=== PATIENT | female | born 1965 | race Caucasian/White ===

== ENCOUNTER 2018-12-10 16:13 | Inpatient (IN) | payer MEDICAID, MEDICARE ==
[2018-12-10] MEDS ORDERED: Albuterol Sulfate 2.5 mg/3 ml Neb ONE (16:49)
[2018-12-10] MEDS ORDERED: Magnesium 2 GM/50 ML BAG (IN WATER) ONE (16:54)
[2018-12-10] MEDS ORDERED: Dexamethasone 10 MG/ML VIAL ONE (16:54)
[2018-12-10 17:05] LABS: Actual Bicarbonate (HCO3a) 21.4 mEq/L (22-28); Analyzer IN Cardio ER; CO2 Tension 32.5 mmHg (35.0-45.0); Carboxyhemoglobin (COHb) 0.5 gm% (0.0-3.0); Hemoglobin (Hb) 13.3 g/dL (12.0-16.0); O2 Tension (PaO2) 87.9 mmHg (80.0-100.0); Potassium - ABG Lab 4.18 mmol/L (3.70-5.30); pH, Arterial 7.44 (7.35-7.45)
[2018-12-10 17:09] LABS: ALV-art Gradient 128.155 (0-20); Puncture Site RRA
[2018-12-10] MEDS ORDERED: Ondansetron PF 4 MG/2 ML Vial IVP PRN (19:24)
[2018-12-10] MEDS ORDERED: Ondansetron ODT 4 MG TAB SL PRN (19:24)
[2018-12-10] MEDS ORDERED: Sodium Chloride 0.9% 1,000 ML IV SCH (19:24)
[2018-12-10] MEDS ORDERED: cefTRIAXone\\ROCEPHIN 1 GM in Sodium Chloride 0.9% 100 ML IVPB SCH (19:30)
[2018-12-10 19:58] VITALS: BMI 24.4
[2018-12-10] MEDS ORDERED: Albuterol Sulfate 2.5 mg/3 ml Neb NEB PRN (20:44)
[2018-12-10] MEDS ORDERED: Azithromycin 250 MG TAB PO SCH (21:00)
[2018-12-10] MEDS: Sodium Chloride 0.9% 1,000 ML IV SCH (21:35)
[2018-12-10] MEDS ORDERED: Senokot S 8.6-50 MG TAB PO PRN (21:41)
[2018-12-10] MEDS ORDERED: Acetaminophen 650 MG Suppository PR PRN (21:41)
[2018-12-10] MEDS: Melatonin 3 MG TAB PO PRN (22:23)
[2018-12-11] MEDS: Acetaminophen 325 MG TAB PO PRN ×3 (00:19→20:19)
--- NOTE | 2018-12-11 02:16 | CON ---
DATE OF CONSULTATION: 12/10/2018 SERVICE: Pulmonary Medicine REASON FOR CONSULTATION: Pneumonia. HISTORY OF PRESENT ILLNESS: The patient is a very pleasant 53-year-old white female. I believe she is known to me as Karen Padilla. That being said, she was in her usual state of health until one day prior to admission. She is well known to have asthma, and obstructive sleep apnea. One day before she came to the hospital, she started having onset of cough. She really did not have much in the way of shortness of breath. The cough progresses as the day went on. She went to sleep that evening and when she woke up the next morning, she had really shortness of breath, cough, sputum production, and had some chills, though did not have a fever. She presented to the emergency department, was discovered to have a pneumonia. She was placed on appropriate antibiotics. She currently denies any fevers, chills, nausea, or vomiting. She is compliant with her CPAP. Otherwise, she has no other specific complaints. PAST MEDICAL HISTORY: 1. Asthma. 2. Obstructive sleep apnea. 3. Hypertension. PAST SURGICAL HISTORY: 1. Breast augmentation. 2. Tubal ligation. 3. Thyroidectomy. SOCIAL HISTORY: She drinks most days of the week. Denies any significant tobacco or illicit drug use any longer. She quit smoking 1-2 years ago, but prior to that had a [id number] history of smoking. Denies any illicit drug use. She has no exposure to chemicals, dust, asbestos, or tuberculosis. FAMILY HISTORY: Noncontributory. ALLERGIES: GASTROGRAFIN. MEDICATIONS: List of her inpatient medications was reviewed. Multiple updates were made at this time. REVIEW OF SYSTEMS: General, head, ears, eyes, nose, and throat, cardiovascular, respiratory, GI, , musculoskeletal, neurologic, and skin is negative except as mentioned in the HPI. PHYSICAL EXAMINATION: VITAL SIGNS: Afebrile, pulse 93, blood pressure 126/74, respirations 20, saturation 93% on 2.5 L nasal cannula. GENERAL: The patient is awake and alert, in no apparent distress. LUNGS: Decent air entry. There is a prolonged expiratory phase with minimal wheezing. Rhonchi are noted, but clear with cough. No crackles. HEART: Normal rate, regular. ABDOMEN: Soft, nontender, nondistended. Bowel sounds are positive. MUSCULOSKELETAL: No cyanosis or clubbing. There is no pitting in the bilateral lower extremities. NEUROLOGIC: Grossly nonfocal. LABORATORY DATA: WBC 17.3, hemoglobin 14.1, platelets 276,000. Neutrophil count is 88%. D-dimer 0.83. PH 7.44, pCO2 32, PO2 88 on 4 L/minute via nasal cannula. Basic metabolic profile and liver function studies are otherwise unremarkable. BNP 120. TSH is unremarkable, lactate 1.4. Liver function studies are unremarkable. Influenza A and B are essentially negative. IMAGING: CT of the chest demonstrates no evidence of a pulmonary embolism. That being said, there are infiltrates in the left lung. Most of these lesions are centrilobular in appearance. There are some overt consolidating changes as well. Emphysema is also present. ASSESSMENT: 1. Asthma/chronic obstructive pulmonary disease exacerbation. 2. Acute on chronic hypoxic respiratory failure. 3. Community-acquired pneumonia. 4. Viral prodrome. DISCUSSION AND PLAN: We will get a respiratory virus panel. The fact that she had hoarseness and cough that predated the illness suggesting me that we might be dealing with a viral pathogen. I agree with antibiotic directed community- acquired coverage. We will provide her with nebulized medications and steroids while she is here. Pulmonary Critical Care will continue to follow while the patient remains inhouse. 70 minutes have been devoted to this patient in various activities. I personally reviewed all imaging studies and laboratory data noted within this document. For fifty percent of this time, I was interacting with the patient at the bedside or coordinating care with the care team. For the remainder of the time I was immediately available to the patient in the hospital unit. Job ID: [id number] [facility]
--- NOTE | 2018-12-11 03:31 | HP ---
CHIEF COMPLAINT: Shortness of breath. HISTORY OF PRESENT ILLNESS: Ms. Mak is a 53-year-old woman who has presented to the emergency department with complaints of shortness of breath, progressively worsening for the last several days. The patient is known to have a history of COPD and was initially seen in [place] today and transferred here due to findings of pneumonia. The patient states that she had more prominent shortness of breath yesterday evening while at work and worsened this morning. She did check her saturation level at home and saw that it was in the high 70s. She states she does not use oxygen at home. She follows with Dr. Figueredo, who is her upholstery handler. She denies having any productive phlegm. Also, denies any hemoptysis. She has not experienced any chest pain. She has not noted any fevers, chills, or sweats. She does not use nebulizers at home, but uses an inhaler regularly. She denies having any lower extremity swelling. The patient has undergone imaging studies with a chest x-ray, which has demonstrated a large left lower lobe infiltrate. Due to an elevated D-dimer, she also underwent a CTA of the chest which showed no evidence of PE; however, she was noted to have multilobar pneumonia. REVIEW OF SYSTEMS: All other review of systems apart from those indicated in the HPI are negative. 1. COPD. 2. Hypertension. 3. Anxiety. 4. Depression. PAST SURGICAL HISTORY: 1. Bilateral breast implants. 2. History of tubal ligation. 3. Thyroidectomy. SOCIAL HISTORY: She is a previous smoker and denies any current tobacco use. She quit smoking less than 10 years ago. Denies any alcohol use or illicit drug use. ALLERGIES: NO KNOWN DRUG ALLERGIES. CURRENT MEDICATIONS: 1. Lisinopril 20 mg p.o. daily. 2. Combivent. PHYSICAL EXAMINATION: GENERAL: The patient appears well developed, well nourished, and in no acute distress. VITAL SIGNS: Temperature 98.9, pulse 97, respirations 20, O2 saturation 98% on 4 L, and blood pressure 129/69. HEENT: Normocephalic and atraumatic. Pupils are equal, round, and reactive to light. Sclerae are anicteric. Oropharynx is clear. NECK: Supple without lymphadenopathy. LUNGS: Mild expiratory wheezes at the bilateral bases. No crackles. CARDIAC: Regular rate and rhythm. ABDOMEN: Soft, nontender, and nondistended. Normoactive bowel sounds are present. EXTREMITIES: No swelling or edema. No calf tenderness. NEUROLOGIC: Alert and oriented x3. SKIN: Without rash or jaundice. LABORATORY DATA: Notable for white count of 17.3, hemoglobin 14.1, hematocrit 42.3, and platelets 276. D-dimer 0.83. Sodium 142, potassium 4.3, BUN 25, creatinine 0.90, carbon dioxide 23, chloride 106, and anion gap 17. GFR 65. Lactic acid 1.4. Total bilirubin 0.2, AST 28, ALT 16, and alkaline phosphatase 50. Troponin negative. BNP 120.5, total protein 7.7, albumin 4.4. Arterial blood gas done showed a pH of 7.44, pCO2 of 32.5, pO2 of 87.9, and base excess -2. IMAGING DATA: CT chest showed no evidence of PE. Left upper and lower lobe infiltrates present consistent with pneumonia and also changes consistent with COPD. IMPRESSION AND PLAN: Ms. Mak is being admitted for management of the followin. Hypoxia. O2 saturations low on room air and currently improved on 4 L of O2 by nasal cannula, remaining vital signs are stable. She has underlying chronic obstructive pulmonary disease as well as multilobar pneumonia as indicated on the chest CTA. We will continue to monitor O2 saturations and continue nebulizer treatments. Dr. Figueredo, her upholstery handler has been consulted. 2. Community-acquired pneumonia. IV antibiotics were given in the ED. She was started on Rocephin and also given steroids. Further adjustments as per Dr. Figueredo's recommendations. 3. Hypertension. We will resume home medication and monitor blood pressure. 4. Deep venous thrombosis prophylaxis. 5. Gastrointestinal prophylaxis. 6. Full code status. She has indicated her son is her surrogate decision maker. The patient's case was discussed with Dr. Genao, who agrees with plan of care as described above. Job ID: [id number]
[2018-12-11] MEDS ORDERED: Dexamethasone 4 mg/ml Vial SLOW IVP SCH (05:00)
[2018-12-11] MEDS: Azithromycin 250 MG TAB PO SCH (07:26)
[2018-12-11] MEDS: Famotidine/PF 20 mg/2ml Vial SLOW IVP SCH ×2 (07:26→20:18)
[2018-12-11] MEDS: predniSONE 20 MG TAB PO SCH (07:26)
[2018-12-11] MEDS: Enoxaparin Sodium 40 MG/0.4 ML SYRINGE SC SCH (07:27)
[2018-12-11 08:05] LABS: #Basophils 0.1 thou/uL (0.0-0.2); #Lymphocytes 0.3 thou/uL (1.20-3.40); #Monocytes 0.2 thou/uL (0.11-0.59); #Neutrophils 9.5 thou/uL (1.40-6.50); %Basophils 1.2 % (0.0-1.0); %Eosinophils 0.3 % (0.0-10.0); %Lymphocytes 2.7 % (21.0-51.0); %Neutrophils 93.9 % (42.0-75.0); Hemoglobin 12.2 g/dL (12.0-16.0); Mean Corpuscular HGB CONC 32.7 g/dL (32.0-36.0); Mean Corpuscular Hemoglobin 33.5 pg (27.0-31.0); Mean Platelet Volume 7.7 fL (7.4-10.4); Platelet Count 184 thou/uL (130-400); Red Blood Cell (RBC) Count 3.64 mill/uL (4.20-5.40); White Blood Cell (WBC) Count 10.1 thou/uL (4.8-10.8)
[2018-12-11 08:26] LABS: Anion Gap 12 mmol/L (10-20); BUN (Urea Nitrogen) 15 mg/dL (9.8-20.1); Calc. Creatinine Clearance 82 mL/min (70-130); Calcium 9.3 mg/dL (7.8-10.44); Carbon Dioxide 25 mmol/L (22-29); Chloride 105 mmol/L (98-107); Estimated GFR-MDRD 76; Glucose 115 mg/dL (70-105); Potassium 4.2 mmol/L (3.5-5.1); Sodium 138 mmol/L (136-145)
--- NOTE | 2018-12-11 11:10 | PDOC.PN ---
- Subjective Encounter Start Date: 12/11/18 Encounter Start Time: 13:00 Subjective: Patient reports improved cough and SOB. Is starting to cough up some -: thick green stuff, and this AM had some blood mixed in it. - Objective Resuscitation Status - Order Detail: 12/10/18 21:41 Resuscitation Status Routine Co-Sign Provider: Resuscitation Status: FULL: Full Resuscitation MAR Reviewed: Yes Vital Signs & Weight: Vital Signs (12 hours) Temp Pulse Resp BP BP Pulse Ox 12/11/18 08:00 97.7 F 68 16 143/80 H 98 12/11/18 07:53 76 20 99 12/11/18 04:13 97.8 F 73 18 110/70 95 12/11/18 00:30 98.3 F 87 18 118/76 96 12/10/18 23:23 88 16 96 Weight Weight 142 lb 7 oz I&O: 12/10/18 12/11/18 12/12/18 06:59 06:59 06:59 Intake Total 1000 Balance 1000 Result Diagrams: 12/11/18 07:36 12/11/18 07:36 Phys Exam - Physical Examination Constitutional: NAD HEENT: moist MMs Respiratory: no wheezing rhonchi and some decreased breath sounds on the left, few rales on the righ Cardiovascular: RRR, no significant murmur Gastrointestinal: soft, positive bowel sounds Musculoskeletal: no edema Neurological: non-focal, moves all 4 limbs Psychiatric: normal affect, A&O x 3 Dx/Plan (1) Community acquired bacterial pneumonia Code(s): J15.9 - UNSPECIFIED BACTERIAL PNEUMONIA Status: Acute Comment: NAAT viral panel negative, left upper and lower lobe infiltrates on CXR and CT chest, on Rocephin and Azithromycin since 11/12/2018 (2) COPD exacerbation Code(s): J44.1 - CHRONIC OBSTRUCTIVE PULMONARY DISEASE W (ACUTE) EXACERBATION Status: Acute Comment: on steroids and nebs, Dr. Figueredo following (3) Acute respiratory failure with hypoxia Code(s): J96.01 - ACUTE RESPIRATORY FAILURE WITH HYPOXIA Status: Acute Comment: not on home O2 (4) Hypertension Code(s): I10 - ESSENTIAL (PRIMARY) HYPERTENSION Status: Chronic Qualifiers: Hypertension type: essential hypertension Qualified Code(s): I10 - Essential (primary) hypertension Comment: resuming home meds - Plan cont current plan of care, continue antibiotics, respiratory therapy, DVT proph w/lovenox, DVT proph w/SCDs * . - Discharge Day Encounter end time: 13:10
[2018-12-11] MEDS ORDERED: Lisinopril/Hydrochlorothiazide 20 mg/12.5 mg Tablet PO SCH (12:45)
[2018-12-11] MEDS ORDERED: Amlodipine 5 MG TAB PO SCH (12:45)
[2018-12-11] MEDS: Sodium Chloride 0.9% 1,000 ML IV SCH (13:00)
[2018-12-11] MEDS ORDERED: cefTRIAXone\\ROCEPHIN 1 GM in Sodium Chloride 0.9% 100 ML IVPB SCH (13:00)
[2018-12-11] MEDS: cefTRIAXone\\ROCEPHIN 1 GM in Sodium Chloride 0.9% 100 ML IVPB SCH (13:00)
--- NOTE | 2018-12-11 17:02 | PRG ---
DATE OF SERVICE: 12/11/2018 SERVICE: Pulmonary Medicine. INTERVAL HISTORY: The patient is doing really well from respiratory standpoint. Breathing comfortably. She actually feels much improved compared to yesterday. She continues to cough up some very purulent thick yellow sputum. There is a little bit of blood to it. Denies any fevers or chills. Otherwise, she is in her usual state of health. PHYSICAL EXAMINATION: VITAL SIGNS: Afebrile, pulse 70, blood pressure is 143/80, respirations 20, and saturation 99% on 3 L nasal cannula. GENERAL: The patient is awake and alert, in no apparent distress. LUNGS: Decent air entry. Rhonchi are present. There is a slightly prolonged expiratory phase. Minimal wheezing. Overall, she is actually moving much better air. HEART: Normal rate. Regular. ABDOMEN: Soft, nontender, nondistended. Bowel sounds are positive. MUSCULOSKELETAL: No cyanosis or clubbing. No pitting in the bilateral lower extremities. NEUROLOGIC: Grossly nonfocal. LABORATORY DATA: Respiratory virus panel is unremarkable. ASSESSMENT: 1. Acute hypoxic respiratory failure. 2. Community-acquired pneumonia. 3. Asthma/chronic obstructive pulmonary disease with acute exacerbation. DISCUSSION AND PLAN: I will give the patient 5 days of antibiotics and 5 days of prednisone. Tomorrow morning, the patient can be considered for transitioning over to p.o. medication. At that point, she can be discharged home, particularly if she is back on to room air. She will need home O2 evaluation before being discharged ultimately. She was on oxygen in the past, but has lost that oxygen because she did not qualify for it in the outpatient setting. She may need another month of oxygen in getting out of the hospital. I will continue to follow if she remains in-house. We will get her on her CPAP at night as she does not have the ability to get in from home. Job ID: [id number] [facility]
[2018-12-11] MEDS: Melatonin 3 MG TAB PO PRN (20:19)
[2018-12-12] MEDS: Enoxaparin Sodium 40 MG/0.4 ML SYRINGE SC SCH (08:58)
[2018-12-12] MEDS: Amlodipine 5 MG TAB PO SCH (08:58)
[2018-12-12] MEDS: Azithromycin 250 MG TAB PO SCH (08:58)
[2018-12-12] MEDS: predniSONE 20 MG TAB PO SCH (08:59)
[2018-12-12] MEDS: Estradiol 1 MG TAB PO SCH (09:02)
[2018-12-12] MEDS: Lisinopril/Hydrochlorothiazide 20 mg/12.5 mg Tablet PO SCH (09:05)
[2018-12-12] MEDS: Famotidine/PF 20 mg/2ml Vial SLOW IVP SCH ×2 (09:05→19:57)
--- NOTE | 2018-12-12 09:29 | PDOC.PN ---
- Subjective Encounter Start Date: 12/12/18 Encounter Start Time: 11:40 Subjective: Cough and SOB much better. She did have some distress upon -: waking this AM using hospital CPAP, will try to get hers for use -: tonight. - Objective Resuscitation Status - Order Detail: 12/10/18 21:41 Resuscitation Status Routine Co-Sign Provider: Resuscitation Status: FULL: Full Resuscitation MAR Reviewed: Yes Vital Signs & Weight: Vital Signs (12 hours) Temp Pulse Resp BP BP Pulse Ox 12/12/18 09:05 87 143/85 H 12/12/18 08:58 87 143/85 H 12/12/18 07:39 87 20 94 L 12/12/18 07:24 97.8 F 87 18 143/85 H 91 L 12/12/18 04:15 97.9 F 80 18 146/81 H 99 12/12/18 01:08 88 14 95 12/12/18 01:07 69 14 95 12/12/18 00:14 97.9 F 81 18 133/77 93 L Weight Weight 142 lb 7 oz I&O: 12/11/18 12/12/18 12/13/18 06:59 06:59 06:59 Intake Total 1000 700 Balance 1000 700 Result Diagrams: 12/11/18 07:36 12/11/18 07:36 Phys Exam - Physical Examination Constitutional: NAD HEENT: moist MMs Respiratory: no wheezing, no rales few rhonchi in left lung Cardiovascular: RRR, no significant murmur Musculoskeletal: no edema Neurological: non-focal, moves all 4 limbs Psychiatric: normal affect, A&O x 3 Dx/Plan (1) Community acquired bacterial pneumonia Code(s): J15.9 - UNSPECIFIED BACTERIAL PNEUMONIA Status: Acute Comment: NAAT viral panel negative, left upper and lower lobe infiltrates on CXR and CT chest, on Rocephin and Azithromycin since 11/12/2018 (2) COPD exacerbation Code(s): J44.1 - CHRONIC OBSTRUCTIVE PULMONARY DISEASE W (ACUTE) EXACERBATION Status: Acute Comment: on steroids and nebs, Dr. Figueredo following (3) Acute respiratory failure with hypoxia Code(s): J96.01 - ACUTE RESPIRATORY FAILURE WITH HYPOXIA Status: Acute Comment: not on home O2, but has needed it in the past (4) Hypertension Code(s): I10 - ESSENTIAL (PRIMARY) HYPERTENSION Status: Chronic Qualifiers: Hypertension type: essential hypertension Qualified Code(s): I10 - Essential (primary) hypertension Comment: resuming home meds - Plan cont current plan of care, continue antibiotics, respiratory therapy, DVT proph w/lovenox, DVT proph w/SCDs try and wean O2 as able * . - Discharge Day Encounter end time: 11:50
[2018-12-12] MEDS: cefTRIAXone\\ROCEPHIN 1 GM in Sodium Chloride 0.9% 100 ML IVPB SCH (14:05)
[2018-12-12] MEDS: Sodium Chloride 0.9% 1,000 ML IV SCH (14:21)
--- NOTE | 2018-12-12 16:14 | PRG ---
DATE OF SERVICE: 12/12/2018 SERVICE: Pulmonary Medicine. INTERVAL HISTORY: The patient is doing really well from respiratory standpoint. This morning, however, she woke up with horrendous shortness of breath. It seems that she had plugged upper airway. After she got liberated significant amount of sputum, she actually felt quite a bit better. That being said, she is touch tearful this morning. She denies any fevers or chills overnight. Overall, the weakness and the fatigue are actually improving albeit. Her breathing was pretty rough this morning. PHYSICAL EXAMINATION: VITAL SIGNS: Afebrile, pulse 75, blood pressure 139/83, respirations 16, and saturation 97% on room air. GENERAL: The patient is awake and alert, in no apparent distress. LUNGS: Rhonchi, crackles, and wheezing are present. They are more predominant on the left. HEART: Normal rate and regular. ABDOMEN: Soft, nontender, and nondistended. Bowel sounds are positive. MUSCULOSKELETAL: No cyanosis or clubbing. No pitting in the bilateral lower extremities. NEUROLOGIC: Grossly nonfocal. ASSESSMENT: 1. Acute hypoxic respiratory failure. 2. Community-acquired pneumonia. 3. Asthma/chronic obstructive pulmonary disease with acute exacerbation. DISCUSSION AND PLAN: Continue antibiotics, nebulized medications, and steroids. She will need to stay in-house until she feels safe to go transition home. I will repeat a chest x-ray. She does not feel that she is ready to go home at this point. I will repeat a chest x-ray tomorrow morning to make certain that she has not had any complications from her pneumonia. Once the patient is ready to go home, there is nothing we are doing for here that can be performed at home. As such, when she is ready, she is stable from my perspective for discharge from the hospital. Job ID: [id number]
[2018-12-12] MEDS: Melatonin 3 MG TAB PO PRN (19:57)
[2018-12-12] MEDS: Acetaminophen 325 MG TAB PO PRN (19:57)
[2018-12-12 20:42] VITALS: TEMP 98.1
--- NOTE | 2018-12-13 08:32 | RAD ---
SINGLE VIEW CHEST: HISTORY: Shortness of breath with infiltrate. COMPARISON: 12/10/2018 FINDINGS: A single view of the chest shows a normal sized cardiomediastinal silhouette with atherosclerotic juan jose cifications in the aorta. There is resolution of the previously seen left-sided infiltrate. There i s no evidence of consolidation, mass, or pleural effusion. IMPRESSION: No evidence of acute cardiopulmonary disease. POS: [facility]
[2018-12-13] MEDS: Famotidine/PF 20 mg/2ml Vial SLOW IVP SCH (08:48)
[2018-12-13] MEDS: predniSONE 20 MG TAB PO SCH (08:49)
[2018-12-13] MEDS: Amlodipine 5 MG TAB PO SCH (08:49)
[2018-12-13] MEDS: Enoxaparin Sodium 40 MG/0.4 ML SYRINGE SC SCH (08:49)
[2018-12-13] MEDS: Azithromycin 250 MG TAB PO SCH (08:49)
[2018-12-13] MEDS: Estradiol 1 MG TAB PO SCH (08:50)
[2018-12-13] MEDS: Lisinopril/Hydrochlorothiazide 20 mg/12.5 mg Tablet PO SCH (08:51)
[2018-12-13] MEDS: Sodium Chloride 0.9% 1,000 ML IV SCH (08:51)
--- NOTE | 2018-12-13 09:47 | PDOC.PN ---
- Subjective Encounter Start Date: 12/13/18 Encounter Start Time: 11:50 Subjective: Patient feeling better today. Sating ok at rest but desated to 79% with -: ambulation with nurse this AM. - Objective Resuscitation Status - Order Detail: 12/10/18 21:41 Resuscitation Status Routine Co-Sign Provider: Resuscitation Status: FULL: Full Resuscitation MAR Reviewed: Yes Vital Signs & Weight: Vital Signs (12 hours) Pulse Resp BP 12/13/18 08:51 90 164/95 H 12/13/18 08:49 90 164/95 H 12/13/18 07:44 80 14 12/13/18 00:35 82 12 Weight Weight 142 lb 7 oz I&O: 12/12/18 12/13/18 12/14/18 06:59 06:59 06:59 Intake Total 700 610 Balance 700 610 Result Diagrams: 12/11/18 07:36 12/11/18 07:36 Phys Exam - Physical Examination Constitutional: NAD HEENT: moist MMs Respiratory: no wheezing, no rales rare rhonchi, much better breath sounds Cardiovascular: RRR Gastrointestinal: soft, positive bowel sounds Neurological: non-focal, moves all 4 limbs Psychiatric: normal affect, A&O x 3 Dx/Plan (1) COPD exacerbation Code(s): J44.1 - CHRONIC OBSTRUCTIVE PULMONARY DISEASE W (ACUTE) EXACERBATION Status: Acute Comment: on steroids and nebs, Dr. Terell gonzales, needs home O2, sating 79% on RA (2) Acute and chronic respiratory failure with hypoxia Code(s): J96.21 - ACUTE AND CHRONIC RESPIRATORY FAILURE WITH HYPOXIA Status: Acute (3) Community acquired bacterial pneumonia Code(s): J15.9 - UNSPECIFIED BACTERIAL PNEUMONIA Status: Acute Comment: NAAT viral panel negative, left upper and lower lobe infiltrates on CXR and CT chest, on Rocephin and Azithromycin since 11/12/2018 (4) Hypertension Code(s): I10 - ESSENTIAL (PRIMARY) HYPERTENSION Status: Chronic Qualifiers: Hypertension type: essential hypertension Qualified Code(s): I10 - Essential (primary) hypertension Comment: resuming home meds - Plan cont current plan of care, continue antibiotics, respiratory therapy try to get home O2 -: Dr. Terell berger with her discharging today * . - Discharge Day Encounter end time: 12:20
--- NOTE | 2018-12-13 12:23 | PQF ---
CLINICAL DOCUMENTATION IMPROVEMENT CLARIFICATION FORM: ICD-10 Updated PLEASE DO AN ADDENDUM TO THE PROGRESS NOTE WITH ANY DOCUMENTATION UPDATES OR ADDITIONS AND CARRY THROUGH TO DC SUMMARY. THANK YOU. DATE: 12/13/18 ATTN : DR. YARBROUGH Please exercise your independent, professional judgment in responding to the clarification form. Clinical indicators are provided on the bottom of this form for your review Please check appropriate box(s) to clarify if the following diagnosis has been ruled in or ruled out: SEPSIS [ X ] Ruled in diagnosis [ ] Continue to treat [ X ] Resolved [ ] Ruled out diagnosis [ ] Other diagnosis [ ] Unable to determine In addition, please specify: Present on Admission (POA): [ X ] Yes [ ] No [ ] Unable to determine For continuity of documentation, please document condition throughout progress notes and discharge summary. Thank You. CLINICAL INDICATORS - SIGNS / SYMPTOMS / LABS ER NOTE: "SEPSIS" ER NOTE: "PATIENT HAS BEEN THOROUGHLY EVALUATED AND APPEARS TO HAVE SEPSIS" ER NOTE: "O2 AT HOME WITH A LEVEL OF 79%" RR 23 HR 112 ( [facility] / PER ER NOTE) WBC 17,000 ([facility] / PER ER NOTE) RISKS: PNEUMONIA COPD ACUTE RESPIRATORY FAILURE TREATMENT: SUPPLEMENTAL OXYGEN NEBS (ER-PRESENT) IV ROCEPHIN (12/11-PRESENT) ZITHROMAX (12/11-12/14) NASAL SWAB PULMONARY CONSULT (This form is maintained as a part of the permanent medical record) 2014 [employer]. All Rights Reserved JUAN PABLO [email or web address] Office: [phone] [facility]
[2018-12-13 12:27] VITALS: BP 157/92
[2018-12-13] MEDS: cefTRIAXone\\ROCEPHIN 1 GM in Sodium Chloride 0.9% 100 ML IVPB SCH (14:33)
--- NOTE | 2018-12-13 17:06 | PRG ---
DATE OF SERVICE: 12/13/2018 SERVICE: Pulmonary Medicine. INTERVAL HISTORY: The patient is doing really well from respiratory standpoint. She actually feels back to baseline. That being said, whenever she gets up and walks around, she desaturates down into the mid 70s. She has a little bit of dyspnea that limits her activity when she does these events. With oxygen at 3 L/minute, her saturations stay at 92%. She has no dyspnea with exertion at that point. Otherwise, there has been no interval change to her condition. PHYSICAL EXAMINATION: VITAL SIGNS: Afebrile. Pulse 87, respirations 18, and saturation 93% on room air. With ambulating on room air, her saturation had 72%. She has mild dyspnea that limits her activity. Repeating this maneuver 3 L nasal cannula, cause her not to desaturate. She maintained saturation at 93% and is able to continue with her exertion. HEENT: Normocephalic and atraumatic. Sclerae white. Conjunctivae pink. Oral mucosa is moist without lesions. LUNGS: Decent air entry. There is a prolonged expiratory phase. I do not hear any wheezing, rhonchi, or crackles today. HEART: Normal rate and regular. ABDOMEN: Soft, nontender, and nondistended. Bowel sounds are positive. MUSCULOSKELETAL: No cyanosis or clubbing. There is no pitting in the bilateral lower extremities. NEUROLOGIC: Grossly nonfocal. ASSESSMENT: 1. Acute on chronic hypoxic respiratory failure. 2. Chronic obstructive pulmonary disease with acute exacerbation (vs Asthma with acute exacerbation). 3. Community-acquired pneumonia, mild. 4. Obstructive sleep apnea. DISCUSSION AND PLAN: The patient is doing okay from respiratory standpoint. We had a repeat chest x-ray today, which did not demonstrate any significant infiltrates. As such, I will just have her return to clinic as previously directed in the future. She will need to go home on oxygen once again. I will have her see me in the outpatient setting and if it is still indicated, we will continue it. If not, we will discontinue it. She will complete her course of antibiotics and steroids in the outpatient setting. If she remains in-house, I will continue to follow, but from my perspective, she is stable for discharge today, provided we can set her up with ambulatory oxygen. Job ID: [id number] [facility]
--- NOTE | 2018-12-13 20:13 | DIS ---
DATE OF ADMISSION: 12/10/2018 DATE OF DISCHARGE: 12/13/2018 PRIMARY CARE PHYSICIAN: Dr. Sagastume in [place]. REASON FOR ADMISSION: Shortness of breath and hypoxia. DIAGNOSES AT DISCHARGE: 1. Community-acquired bacterial pneumonia. 2. Chronic obstructive pulmonary disease exacerbation. 3. Acute on chronic respiratory failure with hypoxia. 4. Hypertension. PROCEDURES: CT of the chest and thorax with contrast done in [place] showing no evidence of pulmonary embolism, but left upper and lower lobe infiltrates consistent with pneumonia as well as COPD changes. CONSULTATIONS: Pulmonology, Dr. Figueredo. SUMMARY OF HOSPITAL COURSE: This is a 53-year-old white female with a history of COPD, previous smoker. She follows with Dr. Figueredo as an outpatient. She has had increasing shortness of breath progressively over several days. She checked her oxygen saturation at home and was found to be in the high 70s and so was brought into the emergency room. In the ER, she was found to have an elevated D-dimer. I did a CT angio of the chest and found a multifocal pneumonia. The patient was started on antibiotics and transferred here. In our hospital, the patient was followed by Dr. Figueredo. She was given antibiotics, steroids, and nebulizers with slow improvement in her symptoms. On the day of discharge, she was able to be weaned off oxygen at rest and saturating 93% to 94%. However, she would drop with anything, but very slow ambulation into the low 80s, high 70s. The patient otherwise felt well and was wanted to be discharged, Dr. Figueredo did evaluate her. He is suspicious that she actually has these drops in saturation chronically with exertion. We will try and arrange some home oxygen for her pay for it herself [id number] now until her pneumonia resolves . DISCHARGE MANAGEMENT: Location: Discharged home. Activity: As tolerated. Diet: Healthy heart, low-sodium diet. Equipments supplies: Oxygen, able to obtain. DISCHARGE MEDICATIONS: 1. Azithromycin 250 mg daily for one more day for a total of five days of antibiotics. 2. Cefdinir 300 mg twice a day for 3 more days of antibiotics for a total seven days of cephalosporin antibiotics. 3. Prednisone 40 mg daily for one more day for a total of five days of steroids. 4. Resume amlodipine 5 mg daily. 5. Estradiol 1 mg daily. 6. Combivent inhaler four times a day as needed. 7. Lisinopril/hydrochlorothiazide 20/12.5 mg one tablet daily. 8. Protonix 40 mg daily. 9. Continue her Breo Ellipta at home. FOLLOW UP: The patient is to follow up with Dr. Figueredo in his clinic in 3 to 4 weeks and with her primary care doctor as needed. Arranging the details of this discharge took 32 minutes. Job ID: [id number]
== END 2018-12-13 16:41 | disposition home or self-care (01) | DRG 871 ==
LOC: ERS 16:13 → T4-B 17:25
PROVIDERS: ADMIT Internal Medicine; ATTEND Internal Medicine
DX: A41.9 Sepsis, unspecified organism (principal); J96.21 Acute and chronic respiratory failure with hypoxia; J15.9 Unspecified bacterial pneumonia; J44.1 Chronic obstructive pulmonary disease with (acute) exacerbation; J44.0 Chronic obstructive pulmonary disease with (acute) lower respiratory infection; I10 Essential (primary) hypertension
CPT/HCPCS: 36415; 71045; 80048; 82805; 85025; 87633; 87798; 94640; 94660; 96365; 96367; 96375; J0696; J1100; J1650; J1956; J3475; J7050; J7611; J7620; S0028

== ENCOUNTER 2020-07-17 23:11 | Inpatient (IN) | payer MEDICARE, MEDICAID ==
[2020-07-18 02:28] LABS: SARS-CoV-2 NAA Rapid Test DETECTED (NotDetected)
[2020-07-18] MEDS ORDERED: Labetalol HCl 100 MG/20 ML VIAL SLOW IVP PRN (02:31)
[2020-07-18] MEDS ORDERED: Guaifenesin DM 100-10/5 ML UDCUP PO PRN (02:31)
[2020-07-18] MEDS ORDERED: Acetaminophen 325 MG TAB PO PRN (02:31)
[2020-07-18] MEDS ORDERED: cloNIDine 0.1 MG TAB PO PRN (02:31)
[2020-07-18] MEDS ORDERED: Ondansetron PF 4 MG/2 ML Vial IVP PRN (02:31)
[2020-07-18] MEDS ORDERED: HYDROcodone/Acetaminophen 5/325 mg Tablet PO PRN (02:31)
[2020-07-18] MEDS ORDERED: Promethazine HCl 12.5 MG in Sodium Chloride 0.9% 50 ML IVPB PRN (02:31)
[2020-07-18] MEDS ORDERED: hydrALAZINE 20 MG/ML VIAL SLOW IVP PRN (02:31)
[2020-07-18] MEDS ORDERED: Albuterol 200 PUFF (6.7GM INHALER) INH PRN ×2 (02:32→03:00)
--- NOTE | 2020-07-18 02:37 | PDOC.HHP ---
Hospitalist HPI - History of Present Illness Shortness of breath History of Present Illness: Patient is a 55 year old female with PMH COPD, HTN, asthma who presents as transfer from [place] for 2 weeks of worsening shortness of breath, cough, wheezing. Patient has known covid contact about 2 weeks ago, ever since then has developed a worsening cough and shortness of breath. Other symptoms include some diarrhea, insomnia, persistent cough. She uses some inhalers at home (spiriva, breo daily, combivent PRN) and was using these frequently but was not helping. She went to [place] ED, there wbc 4, troponin negative, CXR reveals hyperinflation and bibasilar infiltrates concerning for covid 19 pneumonia, patient is not usually on o2 at home but was placed on 2l o2 in outside ed for borderline low sats, given abx, steroids, transferred here for further workup and care. Hospitalist ROS - Review of Systems Constitutional: reports: weakness, malaise. denies: fever, chills, sweats, other Eyes: denies: pain, vision change, conjunctivae inflammation, eyelid inflammation, redness, other ENT: denies: ear pain, ear discharge, nose pain, nose discharge, nose congestion, mouth pain, mouth swelling, throat pain, throat swelling, other Respiratory: reports: cough, shortness of breath, wheezing. denies: dry, hemoptysis, SOB with excertion, pleuritic pain, sputum, other Cardiovascular: denies: chest pain, palpitations, orthopnea, paroxysmal noc. dyspnea, edema, light headedness, other Gastrointestinal: reports: diarrhea. denies: nausea, vomiting, abdominal pain, constipation, melena, hematochezia, other Genitourinary: denies: dysuria, frequency, incontinence, hematuria, retention, other Musculoskeletal: denies: neck pain, shoulder pain, arm pain, back pain, hand pain, leg pain, foot pain, other Skin: denies: rash, lesions, wayne, bruising, other Neurological: denies: weakness, numbness, incoordination, change in speech, confusion, seizures, other All other systems reviewed; all pertinent +/- noted in HPI/Subj - Medication Medications: combivent PRN spiriva, breo daily medications reviewed, for list including dosage and timing, see admission/transfer documents Hospitalist History - Past Medical History Other Medical History: HTN asthma COPD ARSENIO on CPAP at night anxiety depression - Past Surgical History Other Surgical History: bilateral breast implants tubal ligation thyroidectomy - Family History Family History: reports: no pertinent history - Social History Smoking Status: Former smoker Alcohol: reports: Occassional (less than 5 drinks a day) Drugs: reports: none - Exam General Appearance: NAD, awake alert Eye: PERRL, anicteric sclera ENT: normocephalic atraumatic, no oropharyngeal lesions, moist mucosa Neck: supple, symmetric, no JVD, no thyromegaly, no lymphadenopathy, no carotid bruit Heart: RRR, no murmur, no gallops, no rubs, normal peripheral pulses Respiratory: CTAB, no rales, no ronchi, normal chest expansion, no tachypnea, normal percussion Respiratory - other findings: wheezing Gastrointestinal: soft, non-tender, non-distended, normal bowel sounds, no palpable masses, no hepatomegaly, no splenomegaly, no bruit Extremities: no cyanosis, no clubbing, no edema Skin: normal turgor, no lesions, no rashes Neurological: cranial nerve grossly intact, normal sensation to touch, no weakness, no focal deficits, no new deficit Musculoskeletal: normal tone, normal strength, no muscle wasting Psychiatric: normal affect, normal behavior, A&O x 3 Hospitalist Results - Labs Additional comment: VITAL SIGNS TueJul 18, 2020 02:00 JUAN PABLO Harden Daniel BP: 139/79 Pulse: 74 Resp: 18 Temp: 98.4 (Oral) Pain: 0 O2 sat: 99 on (2L Oxygen) Time: 07/18/2020 02:00. outside ED records reviewed labs, imaging reports, ed documents here reviewed Hospitalist H&P A/P - Plan Plan: Patient is a 55 year old female with PMH COPD, HTN, asthma who presents as transfer from [place] for 2 weeks of worsening shortness of breath, cough, wheezing. # bilateral pneumonia - concerning for COVID 19 # COPD w/ exacerbation known covid contact about 2 weeks ago, ever since then has worsening cough, shortness of breath. has COPD and used daily spiriva, breo and was not really using PRN combivent, was not helping. in [place] ED, labs unremarkable, CXR revealed hyperinflation and bibasilar infiltrates concerning for covid 19 pneumonia, patient is not usually on o2 at home but was placed on 2l o2 in outside ed for borderline low sats, given abx, steroids, transferred here for further workup and care. - admit to [facility] w/ precautions, follow up covid test - albuterol inhaler prn - continue breo per formulary. unfortunately no spiriva on formulary, patient can use her home med if she wants - continue IV steroids, azithromycin, ceftriaxone # DVT/GI ppx
[2020-07-18] MEDS ORDERED: Electrolyte Replacement Protoc 1 EACH EACH FS PRN (02:45)
[2020-07-18] MEDS ORDERED: Melatonin 3 MG TAB PO SCH (03:00)
[2020-07-18 03:46] VITALS: BMI 24.4
[2020-07-18] MEDS: Dexamethasone 4 mg/ml Vial SLOW IVP SCH (04:12)
[2020-07-18 06:23] LABS: Troponin I 0.023 ng/mL (< 0.028)
[2020-07-18] MEDS: Albuterol 200 PUFF (6.7GM INHALER) INH SCH ×4 (06:59→18:39)
[2020-07-18] MEDS: Mometasone 100 MCG/Formoterol 5 MCG 120 PUFF INHALER INH SCH ×3 (06:59→18:38)
[2020-07-18] MEDS: Famotidine 20 MG TAB PO SCH ×2 (09:02→20:30)
[2020-07-18] MEDS: Ascorbic Acid 500 mg Chewable Tablet PO SCH (09:02)
[2020-07-18] MEDS: Amlodipine 5 MG TAB PO SCH (09:02)
[2020-07-18] MEDS: Polyethylene Glycol 3350 17 GM Packet PO SCH (09:06)
[2020-07-18 09:44] LABS: #Lymphocytes 0.3 thou/uL (1.20-3.40); #Monocytes 0.1 thou/uL (0.11-0.59); %Eosinophils 0.3 % (0.0-10.0); %Lymphocytes 13.4 % (21.0-51.0); %Monocytes 2.2 % (0.0-10.0); %Neutrophils 84.1 % (42.0-75.0); Hemoglobin 15.6 g/dL (12.0-16.0); Mean Corpuscular HGB CONC 33.8 g/dL (32.0-36.0); Mean Corpuscular Hemoglobin 34.9 pg (27.0-31.0); Mean Platelet Volume 7.5 fL (7.4-10.4); Platelet Count 204 thou/uL (130-400); RBC Distribution Width 11.8 % (11.5-14.5); Red Blood Cell (RBC) Count 4.47 mill/uL (4.20-5.40); White Blood Cell (WBC) Count 2.4 thou/uL (4.8-10.8)
[2020-07-18 10:07] LABS: ALT (SGPT) 18 U/L (8-55); AST (SGOT) 30 U/L (5-34); Albumin 4.2 g/dL (3.5-5.0); Alkaline Phosphatase 73 U/L (40-110); Anion Gap 15 mmol/L (10-20); BUN (Urea Nitrogen) 16 mg/dL (9.8-20.1); Bilirubin, Total 0.3 mg/dL (0.2-1.2); CRP (Inflammatory) 3.53 mg/dL (= or < 0.5); Calc. Creatinine Clearance 83 mL/min (70-130); Calcium 9.5 mg/dL (7.8-10.44); Carbon Dioxide 26 mmol/L (22-29); Chloride 99 mmol/L (98-107); Estimated GFR-MDRD 78; Globulin 3.6 g/dL (2.4-3.5); Glucose 136 mg/dL (70-105); Magnesium 1.3 mg/dL (1.6-2.6); Potassium 4.3 mmol/L (3.5-5.1); Protein, Total 7.8 g/dL (6.0-8.3); Sodium 136 mmol/L (136-145)
[2020-07-18] MEDS: Zinc Sulfate 220 MG CAP PO SCH (11:32)
[2020-07-18] MEDS ORDERED: Magnesium Sulfate 4 GM in Sodium Chloride 0.9% 250 ML 250 ML IVPB SCH (12:30)
--- NOTE | 2020-07-18 18:15 | CON ---
DATE OF CONSULTATION: 07/18/2020 REASON FOR CONSULTATION: COVID pneumonia. HISTORY OF PRESENT ILLNESS: A 55-year-old with history of COPD, prior smoking, hypertension, and prior admission in 2019 for pneumonia, who has been ill for about 14 days now with respiratory symptoms, general weakness, intermittent temperature elevation, could not get to a doctor and was not tested for COVID until now. The patient had a negative COVID test about a month prior to this visit, which was negative. On arrival to the ER, BP 120/110, pulse 97, temperature 98.8, O2 saturation 90% on room air and 98% on 2 L nasal cannula O2 supplementation. She did not appear in distress. The remainder aspects of the examination were described as within normal limits. Other findings; chemistry is fairly unremarkable. CRP was 3.53. Ferritin was normal. LDH was normal. D-dimer is 1.12. White cell count 2.4, hemoglobin 15.6, and platelets 204 with 84% neutrophils. SARS-CoV-2 RNA PCR positive. The imaging showed basilar infiltrates. Currently, she is sitting in bed. She is feeling a little better, but still diffusely weak. No headaches. Intermittent cough, myalgias, and some loose stool. No abdominal pain. No vomiting. No anosmia. No joint symptoms or skin disorder. No neurological symptoms. PAST MEDICAL HISTORY: 1. COPD. 2. Smoking. 3. Prior pneumonia. 4. Asthma. 5. Hypertension. SURGICAL HISTORY: 1. Breast implants. 2. Tubal ligation. 3. Thyroidectomy. SOCIAL HISTORY: Drinks daily. Former smoker. ALLERGIES: GASTROGRAFIN. MEDICATION LIST: In the hospital: 1. Inhalers. 2. Azithromycin. 3. Rocephin. 4. Decadron. 5. Lovenox. 6. Labetalol. 7. Melatonin. 8. Zinc. PHYSICAL EXAMINATION: VITAL SIGNS: Afebrile since admission, O2 saturation is 95% on room air. GENERAL: Appears in no distress. SKIN: Normal. HEENT: Ocular movements conjugate. Oral cavity with a few missing teeth. Oral mucosa normal. NECK: Supple. No jugular vein distention. LUNGS: Faint inspiratory crackles at the bases. No wheezing. HEART: S1 and S2. Regular rate. No S3 or S4. ABDOMEN: Soft, not distended or tender. No ascites. No bladder distention. EXTREMITIES: No joint inflammatory activity. No edema. Moves extremities equally. NEUROLOGIC: Cognitive function appears to be intact. ASSESSMENT: 1. Chronic obstructive pulmonary disease. 2. Asthma. 3. Hypertension. 4. COVID infection, moderate disease, saturating well on room air at the moment. She is not eligible for remdesivir due to the length of illness. I do not think she would benefit from a convalescent plasma either. I will go ahead and continue Decadron and will continue monitoring her progress 2 weeks with a low ferritin and relatively low CRP. I do not predict that she is going to deteriorate further and hopefully be able to be discharged in the next few days. Job ID: [id number]
[2020-07-18] MEDS: Enoxaparin Sodium 40 MG/0.4 ML SYRINGE SC SCH (20:30)
[2020-07-18] MEDS: guaiFENesin ER 600 MG TAB PO SCH (20:30)
[2020-07-18] MEDS: Melatonin 3 MG TAB PO SCH (20:30)
[2020-07-18] MEDS ORDERED: Enoxaparin Sodium 40 MG/0.4 ML SYRINGE SC SCH (21:00)
[2020-07-18] MEDS ORDERED: Azithromycin 500 MG in Sodium Chloride 0.9% 250 ML 250 ML IVPB SCH (21:00)
[2020-07-18] MEDS ORDERED: cefTRIAXone\\ROCEPHIN 1 GM in Sodium Chloride 0.9% 100 ML IVPB SCH (22:00)
[2020-07-19] MEDS: Dexamethasone 4 mg/ml Vial SLOW IVP SCH (03:13)
[2020-07-19 06:39] LABS: ALT (SGPT) 16 U/L (8-55); AST (SGOT) 26 U/L (5-34); Albumin 3.9 g/dL (3.5-5.0); Alkaline Phosphatase 64 U/L (40-110); Anion Gap 16 mmol/L (10-20); BUN (Urea Nitrogen) 20 mg/dL (9.8-20.1); Band 12 % (5-11); Bilirubin, Total 0.3 mg/dL (0.2-1.2); Calc. Creatinine Clearance 83 mL/min (70-130); Calcium 9.2 mg/dL (7.8-10.44); Carbon Dioxide 23 mmol/L (22-29); Chloride 101 mmol/L (98-107); Estimated GFR-MDRD 78; Globulin 3.4 g/dL (2.4-3.5); Glucose 131 mg/dL (70-105); Hemoglobin 15.7 g/dL (12.0-16.0); Lymphocytes 6 % (21-51); MDiff Complete? YES; Macrocytosis SLIGHT = 6-15 cells (100X) (0-5/hpf); Mean Corpuscular HGB CONC 33.2 g/dL (32.0-36.0); Mean Corpuscular Hemoglobin 34.7 pg (27.0-31.0); Mean Platelet Volume 7.6 fL (7.4-10.4); Monocytes 2 % (0-10); Neutrophil 80 % (42-75); Platelet Count 192 thou/uL (130-400); Potassium 4.1 mmol/L (3.5-5.1); Protein, Total 7.3 g/dL (6.0-8.3); Red Blood Cell (RBC) Count 4.52 mill/uL (4.20-5.40); Sodium 136 mmol/L (136-145); White Blood Cell (WBC) Count 5.1 thou/uL (4.8-10.8)
[2020-07-19] MEDS: Albuterol 200 PUFF (6.7GM INHALER) INH SCH ×4 (06:53→19:10)
[2020-07-19] MEDS: Mometasone 100 MCG/Formoterol 5 MCG 120 PUFF INHALER INH SCH ×2 (06:53→19:05)
[2020-07-19] MEDS: Zinc Sulfate 220 MG CAP PO SCH (08:49)
[2020-07-19] MEDS: guaiFENesin ER 600 MG TAB PO SCH ×2 (08:49→20:38)
[2020-07-19] MEDS: Ascorbic Acid 500 mg Chewable Tablet PO SCH (08:49)
[2020-07-19] MEDS: Cyanocobalamin (Vitamin B-12) 1,000 MCG TAB PO SCH (08:49)
[2020-07-19] MEDS: Folic Acid 1 MG TAB PO SCH (08:49)
[2020-07-19] MEDS: Amlodipine 5 MG TAB PO SCH (08:49)
[2020-07-19] MEDS: Famotidine 20 MG TAB PO SCH ×2 (08:49→20:38)
[2020-07-19] MEDS: Multivit, Therapeutic 1 TAB PO SCH (08:49)
[2020-07-19] MEDS: Enoxaparin Sodium 40 MG/0.4 ML SYRINGE SC SCH ×2 (08:50→20:38)
[2020-07-19] MEDS: Polyethylene Glycol 3350 17 GM Packet PO SCH (08:50)
[2020-07-19] MEDS ORDERED: Folic Acid 1 MG TAB PO SCH (09:00)
[2020-07-19] MEDS ORDERED: Cyanocobalamin (Vitamin B-12) 1,000 MCG TAB PO SCH (09:00)
[2020-07-19] MEDS ORDERED: Magnesium 2 GM/50 ML 2 GM in Premix Bag 1 BAG IVPB SCH (10:45)
--- NOTE | 2020-07-19 14:56 | PRG ---
DATE OF SERVICE: 07/19/2020 SUBJECTIVE: Feeling 50% better. Less cough. Able to taste food well. No abdominal cramps. No diarrhea. Voiding without difficulty. No neurological symptoms. OBJECTIVE: VITAL SIGNS: She has been afebrile since admission, pulse 84, respirations 18, saturating 93% on room air and 96% on 2 L. LUNGS: Clear. HEART: S1, S2. Regular rate. ABDOMEN: Soft, not distended. EXTREMITIES: Moves extremities equally. LABORATORY DATA: White cell count 5.1, hemoglobin 15.7, platelets 192, 12% bands, 6% lymphocytes. D-dimer is up to 1.17. Creatinine down from 3.5 to 1.9. Ferritin has always been normal. ASSESSMENT AND DISCUSSION: Chronic obstructive pulmonary disease, hypertension, moderate COVID pneumonia. Did not get antiviral because of length of illness at 14 days, today is the 15th day. She is only on Decadron and should do well going forward. We will see in few more days before she goes home unless something happens, but does not look like it is going to. Job ID: [id number]
--- NOTE | 2020-07-19 18:24 | PDOC.HOSPP ---
- Subjective Encounter Date: 07/19/20 Encounter Time: 17:30 Subjective: Patient evaluated for respiratory failure due to COVID-19 pneumonia. Symptomatically feels better. Shortness of breath on [id number] exertion. Some dry cough. - Objective Vital Signs & Weight: Vital Signs (12 hours) Temp Pulse Resp BP Pulse Ox 07/19/20 08:49 84 07/19/20 08:00 97.9 F 67 18 133/86 93 L Weight Admit Weight 142 lb 3.008 oz Weight 142 lb 3 oz I&O: 07/18/20 07/19/20 07/20/20 06:59 06:59 06:59 Intake Total 240 850 200 Balance 240 850 200 Result Diagrams: 07/19/20 05:32 07/19/20 05:32 Additional Labs: 07/18/20 01:05: SARS-CoV-2 Rap RNA(RT-PCR) DETECTED A* 07/18/20 09:11: Magnesium 1.3 L, C-Reactive Protein 3.53 H, Globulin 3.6 H 07/18/20 09:11: WBC 2.4 L, MCV 103.0 H, MCH 34.9 H, Neutrophils % 84.1 H, Lymphocytes % 13.4 L, Lymphocytes # 0.3 L, Monocytes # 0.1 L 07/18/20 09:11: D-Dimer 1.12 H 07/19/20 05:32: Albumin/Globulin Ratio 1.1 L 07/19/20 05:32: C-Reactive Protein 1.90 H 07/19/20 05:32: Hct 47.3 H, MCV 105.0 H, MCH 34.7 H, Neutrophils % (Manual) 80 H, Band Neuts % (Manual) 12 H, Lymphocytes % (Manual) 6 L 07/19/20 05:32: D-Dimer 1.17 H Radiology Reviewed by me: Yes (Chest x-raybilateral infiltrate) Hospitalist ROS - Review of Systems Respiratory: reports: cough, dry, shortness of breath, SOB with excertion. denies: hemoptysis, pleuritic pain, sputum, wheezing, other Cardiovascular: denies: chest pain, palpitations, orthopnea, paroxysmal noc. dyspnea, edema, light headedness, other Gastrointestinal: denies: nausea, vomiting, abdominal pain, diarrhea, c onstipation, melena, hematochezia (None), other Genitourinary: denies: dysuria, frequency, incontinence, hematuria, retention, other - Medication Medications: Active Medications Generic Name Dose Route Start Last Admin Trade Name Azar PRN Reason Stop Dose Admin Albuterol Sulfate 2 puff 07/18/20 07:00 07/19/20 15:17 Albuterol 200 Puff (6.7gm Inhaler) INH 2 puff QID-RT VLADIMIR Administration Amlodipine Besylate 5 mg 07/18/20 09:00 07/19/20 08:49 Amlodipine 5 Mg Tab PO 5 mg DAILY VLADIMIR Administration Ascorbic Acid 1,000 mg 07/18/20 09:00 07/19/20 08:49 Ascorbic Acid 500 Mg Chewable Tablet PO 1,000 mg DAILY VLADIMIR Administration Cyanocobalamin 1,000 mcg 07/19/20 09:00 07/19/20 08:49 Cyanocobalamin (Vitamin B-12) 1,000 Mcg Tab PO 1,000 mcg DAILY VLADIMIR Administration Dexamethasone 6 mg 07/18/20 02:45 07/19/20 03:13 Dexamethasone 4 Mg/Ml Vial SLOW IVP 6 mg Q24H VLADIMIR Administration Enoxaparin Sodium 40 mg 07/18/20 21:00 07/19/20 08:50 Enoxaparin Sodium 40 Mg/0.4 Ml Syringe SC 40 mg BID VLADIMIR Administration Famotidine 20 mg 07/18/20 09:00 07/19/20 08:49 Famotidine 20 Mg Tab PO 20 mg BID VLADIMIR Administration Folic Acid 1 mg 07/19/20 09:00 07/19/20 08:49 Folic Acid 1 Mg Tab PO 1 mg DAILY VLADIMIR Administration Guaifenesin 600 mg 07/18/20 21:00 07/19/20 08:49 Guaifenesin Er 600 Mg Tab PO 600 mg Q12HR VLADIMIR Administration Melatonin 3 mg 07/18/20 21:00 07/18/20 20:30 Melatonin 3 Mg Tab PO 3 mg HS VLADIMIR Administration Mometasone Furoate/Formoterol Fumar 1 puff 07/18/20 06:30 07/19/20 06:53 Mometasone 100 Mcg/Formoterol 5 Mcg 120 Puff Inhaler INH 1 puff BID-RT VLADIMIR Administration Multivitamins 1 tab 07/19/20 09:00 07/19/20 08:49 Multivit, Therapeutic 1 Tab PO 1 tab DAILY VLADIMIR Administration Polyethylene Glycol 17 gm 07/18/20 09:00 07/19/20 08:50 Polyethylene Glycol 3350 17 Gm Packet PO 17 gm DAILY VLADIMIR Administration Sodium Chloride 10 ml 07/18/20 09:00 07/19/20 08:50 Flush - Normal Saline 10 Ml Syringe IVF 10 ml Q12HR VLADIMIR Administration Zinc Sulfate 220 mg 07/18/20 09:00 07/19/20 08:49 Zinc Sulfate 220 Mg Cap PO 220 mg DAILY VLADIMIR Administration - Exam General Appearance: ill appearing Neck: supple Extremities: no edema Musculoskeletal: generalized weakness Psychiatric: normal affect, A&O x 3 Hosp A/P (1) Acute respiratory failure with hypoxia Code(s): J96.01 - ACUTE RESPIRATORY FAILURE WITH HYPOXIA Status: Acute (2) Pneumonia due to COVID-19 virus Code(s): U07.1 - COVID-19; J12.89 - OTHER VIRAL PNEUMONIA Status: Acute (3) Hypomagnesemia Code(s): E83.42 - HYPOMAGNESEMIA Status: Acute (4) COPD (chronic obstructive pulmonary disease) Status: Chronic (5) Former smoker Status: Chronic (6) Hypertension Code(s): I10 - ESSENTIAL (PRIMARY) HYPERTENSION Status: Chronic Qualifiers: Hypertension type: essential hypertension Qualified Code(s): I10 - Essential (primary) hypertension - Plan DVT proph w/lovenox, DVT proph w/SCDs 07/19 Replace magnesium. Continue dexamethasoneday 2. Patient did not not meet the criteria for Remdesivir. Continue O2 supplementation. Inflammatory markers i mproving. Day 15 of her illness.
[2020-07-19] MEDS: Melatonin 3 MG TAB PO SCH (20:38)
[2020-07-19] MEDS ORDERED: Lisinopril/Hydrochlorothiazide 20 mg/12.5 mg Tablet PO SCH (21:15)
[2020-07-20] MEDS: Dexamethasone 4 mg/ml Vial SLOW IVP SCH (03:19)
[2020-07-20] MEDS: Mometasone 100 MCG/Formoterol 5 MCG 120 PUFF INHALER INH SCH ×2 (06:08→19:05)
[2020-07-20] MEDS: Albuterol 200 PUFF (6.7GM INHALER) INH SCH ×4 (06:09→19:05)
[2020-07-20 06:12] LABS: #Lymphocytes 0.6 thou/uL (1.20-3.40); #Monocytes 0.3 thou/uL (0.11-0.59); #Neutrophils 3.2 thou/uL (1.40-6.50); %Basophils 0.1 % (0.0-1.0); %Eosinophils 0.3 % (0.0-10.0); %Lymphocytes 15.4 % (21.0-51.0); %Monocytes 6.4 % (0.0-10.0); %Neutrophils 77.8 % (42.0-75.0); Hemoglobin 14.6 g/dL (12.0-16.0); Mean Corpuscular HGB CONC 33.1 g/dL (32.0-36.0); Mean Corpuscular Hemoglobin 34.4 pg (27.0-31.0); Mean Platelet Volume 7.4 fL (7.4-10.4); Platelet Count 211 thou/uL (130-400); Red Blood Cell (RBC) Count 4.25 mill/uL (4.20-5.40); White Blood Cell (WBC) Count 4.1 thou/uL (4.8-10.8)
[2020-07-20 06:28] LABS: ALT (SGPT) 14 U/L (8-55); AST (SGOT) 24 U/L (5-34); Albumin 3.7 g/dL (3.5-5.0); Alkaline Phosphatase 55 U/L (40-110); Anion Gap 13 mmol/L (10-20); BUN (Urea Nitrogen) 23 mg/dL (9.8-20.1); Bilirubin, Total 0.4 mg/dL (0.2-1.2); Calc. Creatinine Clearance 89 mL/min (70-130); Calcium 9.4 mg/dL (7.8-10.44); Carbon Dioxide 23 mmol/L (22-29); Chloride 103 mmol/L (98-107); Estimated GFR-MDRD 85; Globulin 3.4 g/dL (2.4-3.5); Glucose 113 mg/dL (70-105); Potassium 4.4 mmol/L (3.5-5.1); Protein, Total 7.1 g/dL (6.0-8.3); Sodium 135 mmol/L (136-145)
[2020-07-20] MEDS: Lisinopril/Hydrochlorothiazide 20 mg/12.5 mg Tablet PO SCH (08:58)
[2020-07-20] MEDS: Cyanocobalamin (Vitamin B-12) 1,000 MCG TAB PO SCH (08:58)
[2020-07-20] MEDS: Ascorbic Acid 500 mg Chewable Tablet PO SCH (08:58)
[2020-07-20] MEDS: guaiFENesin ER 600 MG TAB PO SCH ×2 (08:59→20:49)
[2020-07-20] MEDS: Folic Acid 1 MG TAB PO SCH (08:59)
[2020-07-20] MEDS: Famotidine 20 MG TAB PO SCH ×2 (08:59→20:49)
[2020-07-20] MEDS: Amlodipine 5 MG TAB PO SCH (08:59)
[2020-07-20] MEDS: Polyethylene Glycol 3350 17 GM Packet PO SCH (08:59)
[2020-07-20] MEDS: Calcium Carbonate 600 MG + Vit D TAB PO SCH (08:59)
[2020-07-20] MEDS: Zinc Sulfate 220 MG CAP PO SCH (08:59)
[2020-07-20] MEDS: Multivit, Therapeutic 1 TAB PO SCH (08:59)
[2020-07-20] MEDS: Enoxaparin Sodium 40 MG/0.4 ML SYRINGE SC SCH ×2 (09:00→20:49)
--- NOTE | 2020-07-20 17:43 | PDOC.HOSPP ---
- Subjective Encounter Date: 07/20/20 Encounter Time: 15:00 Subjective: Patient seen and examined for respiratory failure/COVID-19 pneumonia. No significant change in her symptoms. Mild productive cough. - Objective Vital Signs & Weight: Vital Signs (12 hours) Pulse Ox 07/20/20 08:00 95 Weight Admit Weight 142 lb 3.008 oz Weight 142 lb 3 oz I&O: 07/19/20 07/20/20 07/21/20 06:59 06:59 06:59 Intake Total 850 440 Balance 850 440 Result Diagrams: 07/20/20 05:31 07/20/20 05:31 Hospitalist ROS - Review of Systems Cardiovascular: denies: chest pain, palpitations, orthopnea, paroxysmal noc. dyspnea, edema, light headedness, other Gastrointestinal: denies: nausea, vomiting, abdominal pain, diarrhea, constipation, melena, hematochezia, other - Medication Medications: Active Medications Generic Name Dose Route Start Last Admin Trade Name Freq PRN Reason Stop Dose Admin Albuterol Sulfate 2 puff 07/18/20 07:00 07/20/20 13:33 Albuterol 200 Puff (6.7gm Inhaler) INH 2 puff QID-RT VLADIMIR Administration Amlodipine Besylate 5 mg 07/18/20 09:00 07/20/20 08:59 Amlodipine 5 Mg Tab PO 5 mg DAILY VLADIMIR Administration Ascorbic Acid 1,000 mg 07/18/20 09:00 07/20/20 08:58 Ascorbic Acid 500 Mg Chewable Tablet PO 1,000 mg DAILY VLADIMIR Administration Calcium/Vitamin D 1 tab 07/20/20 09:00 07/20/20 08:59 Calcium Carbonate 600 Mg + Vit D Tab PO 1 tab DAILY VLADIMIR Administration Cyanocobalamin 1,000 mcg 07/19/20 09:00 07/20/20 08:58 Cyanocobalamin (Vitamin B-12) 1,000 Mcg Tab PO 1,000 mcg DAILY VLADIMIR Administration Dexamethasone 6 mg 07/18/20 02:45 07/20/20 03:19 Dexamethasone 4 Mg/Ml Vial SLOW IVP 6 mg Q24H VLADIMIR Administration Enoxaparin Sodium 40 mg 07/18/20 21:00 07/20/20 09:00 Enoxaparin Sodium 40 Mg/0.4 Ml Syringe SC 40 mg BID VLADIMIR Administration Famotidine 20 mg 07/18/20 09:00 07/20/20 08:59 Famotidine 20 Mg Tab PO 20 mg BID VLADIMIR Administration Folic Acid 1 mg 07/19/20 09:00 07/20/20 08:59 Folic Acid 1 Mg Tab PO 1 mg DAILY VLADIMIR Administration Guaifenesin 600 mg 07/19/20 21:00 07/20/20 08:59 Guaifenesin Er 600 Mg Tab PO 600 mg Q12HR VLADIMIR Administration Lisinopril/HCTZ 1 tab 07/20/20 09:00 07/20/20 08:58 Lisinopril/Hydrochlorothiazide 20 Mg/12.5 Mg Tablet PO 1 tab DAILY VLADIMIR Administration Melatonin 3 mg 07/18/20 21:00 07/19/20 20:38 Melatonin 3 Mg Tab PO 3 mg HS VLADIMIR Administration Mometasone Furoate/Formoterol Fumar 1 puff 07/18/20 06:30 07/20/20 06:08 Mometasone 100 Mcg/Formoterol 5 Mcg 120 Puff Inhaler INH 1 puff BID-RT VLADIMIR Administration Multivitamins 1 tab 07/19/20 09:00 07/20/20 08:59 Multivit, Therapeutic 1 Tab PO 1 tab DAILY VLADIMIR Administration Polyethylene Glycol 17 gm 07/18/20 09:00 07/20/20 08:59 Polyethylene Glycol 3350 17 Gm Packet PO 17 gm DAILY VLADIMIR Administration Sodium Chloride 10 ml 07/18/20 09:00 07/20/20 09:00 Flush - Normal Saline 10 Ml Syringe IVF 10 ml Q12HR VLADIMIR Administration Zinc Sulfate 220 mg 07/18/20 09:00 07/20/20 08:59 Zinc Sulfate 220 Mg Cap PO 220 mg DAILY VLADIMIR Administration - Exam General - other findings: In minimal respiratory distresson 2 L nasal cannula Heart: no gallops, no rubs Respiratory: rales, rhonchi Gastrointestinal: soft, normal bowel sounds Extremities: no cyanosis Musculoskeletal: generalized weakness Psychiatric: A&O x 3 Hosp A/P (1) Acute respiratory failure with hypoxia Code(s): J96.01 - ACUTE RESPIRATORY FAILURE WITH HYPOXIA Status: Acute (2) Pneumonia due to COVID-19 virus Code(s): U07.1 - COVID-19; J12.89 - OTHER VIRAL PNEUMONIA Status: Acute (3) Hypomagnesemia Code(s): E83.42 - HYPOMAGNESEMIA Status: Acute (4) COPD (chronic obstructive pulmonary disease) Status: Chronic (5) Former smoker Status: Chronic (6) Hypertension Code(s): I10 - ESSENTIAL (PRIMARY) HYPERTENSION Status: Chronic Qualifiers: Hypertension type: essential hypertension Qualified Code(s): I10 - Essential (primary) hypertension - Plan DVT proph w/lovenox 07/20 Continue IV dexamethasone. Continue inhalers. Continue Lovenox 40 mg twice daily. Continue to monitor. DC home once cleared by infectious disease. Will consult rifle case repairer for assistance with home transportationper patient request. 07/19 Replace magnesium. Continue dexamethasoneday 2. Patient did not not meet the criteria for Remdesivir. Continue O2 supplementation. Inflammatory markers improving. Day 15 of her illness.
[2020-07-20] MEDS: Melatonin 3 MG TAB PO SCH (20:49)
[2020-07-21] MEDS: Dexamethasone 4 mg/ml Vial SLOW IVP SCH (03:10)
[2020-07-21 06:20] LABS: #Lymphocytes 0.7 thou/uL (1.20-3.40); #Monocytes 0.3 thou/uL (0.11-0.59); #Neutrophils 3.6 thou/uL (1.40-6.50); %Basophils 0.6 % (0.0-1.0); %Eosinophils 0.3 % (0.0-10.0); %Lymphocytes 15.9 % (21.0-51.0); %Monocytes 6.1 % (0.0-10.0); %Neutrophils 77.1 % (42.0-75.0); Hemoglobin 15.1 g/dL (12.0-16.0); Mean Corpuscular HGB CONC 34.2 g/dL (32.0-36.0); Mean Corpuscular Hemoglobin 34.9 pg (27.0-31.0); Mean Platelet Volume 7.5 fL (7.4-10.4); Platelet Count 254 thou/uL (130-400); RBC Distribution Width 11.9 % (11.5-14.5); Red Blood Cell (RBC) Count 4.33 mill/uL (4.20-5.40); White Blood Cell (WBC) Count 4.6 thou/uL (4.8-10.8)
[2020-07-21 06:40] LABS: ALT (SGPT) 15 U/L (8-55); AST (SGOT) 21 U/L (5-34); Albumin 3.8 g/dL (3.5-5.0); Alkaline Phosphatase 53 U/L (40-110); Anion Gap 14 mmol/L (10-20); BUN (Urea Nitrogen) 29 mg/dL (9.8-20.1); Bilirubin, Total 0.4 mg/dL (0.2-1.2); Calc. Creatinine Clearance 79 mL/min (70-130); Calcium 10.1 mg/dL (7.8-10.44); Carbon Dioxide 24 mmol/L (22-29); Chloride 102 mmol/L (98-107); Estimated GFR-MDRD 74; Globulin 3.4 g/dL (2.4-3.5); Glucose 118 mg/dL (70-105); Potassium 4.4 mmol/L (3.5-5.1); Protein, Total 7.2 g/dL (6.0-8.3); Sodium 136 mmol/L (136-145)
[2020-07-21] MEDS: Mometasone 100 MCG/Formoterol 5 MCG 120 PUFF INHALER INH SCH ×2 (07:09→18:22)
[2020-07-21] MEDS: Albuterol 200 PUFF (6.7GM INHALER) INH SCH ×4 (07:09→18:21)
[2020-07-21] MEDS: Ascorbic Acid 500 mg Chewable Tablet PO SCH (08:55)
[2020-07-21] MEDS: Calcium Carbonate 600 MG + Vit D TAB PO SCH (08:55)
[2020-07-21] MEDS: Lisinopril/Hydrochlorothiazide 20 mg/12.5 mg Tablet PO SCH ×2 (08:55→09:17)
[2020-07-21] MEDS: Amlodipine 5 MG TAB PO SCH ×2 (08:55→09:17)
[2020-07-21] MEDS: Famotidine 20 MG TAB PO SCH ×2 (08:55→20:52)
[2020-07-21] MEDS: Multivit, Therapeutic 1 TAB PO SCH (08:55)
[2020-07-21] MEDS: Zinc Sulfate 220 MG CAP PO SCH (08:55)
[2020-07-21] MEDS: Folic Acid 1 MG TAB PO SCH (08:55)
[2020-07-21] MEDS: guaiFENesin ER 600 MG TAB PO SCH ×2 (08:56→20:52)
[2020-07-21] MEDS: Enoxaparin Sodium 40 MG/0.4 ML SYRINGE SC SCH ×2 (08:56→20:52)
[2020-07-21] MEDS: Polyethylene Glycol 3350 17 GM Packet PO SCH (08:56)
[2020-07-21] MEDS: Cyanocobalamin (Vitamin B-12) 1,000 MCG TAB PO SCH (08:56)
--- NOTE | 2020-07-21 19:34 | PDOC.HOSPP ---
- Subjective Encounter Date: 07/21/20 Encounter Time: 15:30 Subjective: Patient seen and examined for respiratory failure/COVID-19 pneumonia. Shortness of breath improving. Complains of cough with minimal production. - Objective Vital Signs & Weight: Vital Signs (12 hours) Temp Pulse Resp BP Pulse Ox 07/21/20 15:33 98.2 F 62 18 148/82 H 96 07/21/20 09:17 98 F 90 18 103/69 94 L 07/21/20 08:55 94 L Weight Admit Weight 142 lb 3.008 oz Weight 142 lb 3 oz I&O: 07/20/20 07/21/20 07/22/20 06:59 06:59 06:59 Intake Total 440 720 Balance 440 720 Result Diagrams: 07/21/20 05:44 07/21/20 05:44 Hospitalist ROS - Review of Systems Cardiovascular: denies: chest pain, palpitations, orthopnea, paroxysmal noc. dyspnea, edema, light headedness, other Gastrointestinal: denies: nausea, vomiting, abdominal pain, diarrhea, constipation, melena, hematochezia, other - Medication Medications: Active Medications Generic Name Dose Route Start Last Admin Trade Name Freq PRN Reason Stop Dose Admin Albuterol Sulfate 2 puff 07/18/20 07:00 07/21/20 18:21 Albuterol 200 Puff (6.7gm Inhaler) INH 2 puff QID-RT VLADIMIR Administration Amlodipine Besylate 5 mg 07/18/20 09:00 07/21/20 09:17 Amlodipine 5 Mg Tab PO Not Given DAILY VLADIMIR Ascorbic Acid 1,000 mg 07/18/20 09:00 07/21/20 08:55 Ascorbic Acid 500 Mg Chewable Tablet PO 1,000 mg DAILY VLADIMIR Administration Calcium/Vitamin D 1 tab 07/20/20 09:00 07/21/20 08:55 Calcium Carbonate 600 Mg + Vit D Tab PO 1 tab DAILY VLADIMIR Administration Cyanocobalamin 1,000 mcg 07/19/20 09:00 07/21/20 08:56 Cyanocobalamin (Vitamin B-12) 1,000 Mcg Tab PO 1,000 mcg DAILY VLADIMIR Administration Dexamethasone 6 mg 07/18/20 02:45 07/21/20 03:10 Dexamethasone 4 Mg/Ml Vial SLOW IVP 6 mg Q24H VLADIMIR Administration Enoxaparin Sodium 40 mg 07/18/20 21:00 07/21/20 08:56 Enoxaparin Sodium 40 Mg/0.4 Ml Syringe SC 40 mg BID VLADIMIR Administration Famotidine 20 mg 07/18/20 09:00 07/21/20 08:55 Famotidine 20 Mg Tab PO 20 mg BID VLADIMIR Administration Folic Acid 1 mg 07/19/20 09:00 07/21/20 08:55 Folic Acid 1 Mg Tab PO 1 mg DAILY VLADIMIR Administration Guaifenesin 600 mg 07/19/20 21:00 07/21/20 08:56 Guaifenesin Er 600 Mg Tab PO 600 mg Q12HR VLADIMIR Administration Lisinopril/HCTZ 1 tab 07/20/20 09:00 07/21/20 09:17 Lisinopril/Hydrochlorothiazide 20 Mg/12.5 Mg Tablet PO Not Given DAILY VLADIMIR Melatonin 3 mg 07/18/20 21:00 07/20/20 20:49 Melatonin 3 Mg Tab PO 3 mg HS VLADIMIR Administration Mometasone Furoate/Formoterol Fumar 1 puff 07/18/20 06:30 07/21/20 18:22 Mometasone 100 Mcg/Formoterol 5 Mcg 120 Puff Inhaler INH 1 puff BID-RT VLADIMIR Administration Multivitamins 1 tab 07/19/20 09:00 07/21/20 08:55 Multivit, Therapeutic 1 Tab PO 1 tab DAILY VLADIMIR Administration Polyethylene Glycol 17 gm 07/18/20 09:00 07/21/20 08:56 Polyethylene Glycol 3350 17 Gm Packet PO 17 gm DAILY VLADIMIR Administration Sodium Chloride 10 ml 07/18/20 09:00 07/21/20 08:56 Flush - Normal Saline 10 Ml Syringe IVF 10 ml Q12HR VLADIMIR Administration Zinc Sulfate 220 mg 07/18/20 09:00 07/21/20 08:55 Zinc Sulfate 220 Mg Cap PO 220 mg DAILY VLADIMIR Administration - Exam General - other findings: In minimal respiratory distress Heart: RRR, no gallops Respiratory: no wheezes, rales, rhonchi Gastrointestinal: soft, non-distended Extremities: no cyanosis Neurological: no new deficit Musculoskeletal: generalized weakness Hosp A/P (1) Acute respiratory failure with hypoxia Code(s): J96.01 - ACUTE RESPIRATORY FAILURE WITH HYPOXIA Status: Acute (2) Pneumonia due to COVID-19 virus Code(s): U07.1 - COVID-19; J12.89 - OTHER VIRAL PNEUMONIA Status: Acute (3) Hypomagnesemia Code(s): E83.42 - HYPOMAGNESEMIA Status: Acute (4) COPD (chronic obstructive pulmonary disease) Status: Chronic (5) Former smoker Status: Chronic (6) Hypertension Code(s): I10 - ESSENTIAL (PRIMARY) HYPERTENSION Status: Chronic Qualifiers: Hypertension type: essential hypertension Qualified Code(s): I10 - Essential (primary) hypertension - Plan 07/21 Continue IV dexamethasone. Room air saturation is 86%. Discussed with infectious disease. Will monitor overnight. Probably discharge in 24 to 48 hours if stable. Patient already has home oxygen and pulse oximeter. Will arrange home health care. Continue steroid inhalers with albuterol as needed. Patient is at high risk of decompensation given her history of COPD. Continue Lovenox for DVT prophylaxis. 07/20 Continue IV dexamethasone. Continue inhalers. Continue Lovenox 40 mg twice daily. Continue to monitor. DC home once cleared by infectious disease. Will consult case advocate for assistance with home transportationper patient request. 07/19 Replace magnesium. Continue dexamethasoneday 2. Patient did not not meet the criteria for Remdesivir. Continue O2 supplementation. Inflammatory markers improving. Day 15 of her illness.
[2020-07-21] MEDS: Melatonin 3 MG TAB PO SCH (20:52)
[2020-07-22] MEDS: Dexamethasone 4 mg/ml Vial SLOW IVP SCH (03:28)
[2020-07-22] MEDS: Albuterol 200 PUFF (6.7GM INHALER) INH SCH ×2 (06:19→11:52)
[2020-07-22] MEDS: Mometasone 100 MCG/Formoterol 5 MCG 120 PUFF INHALER INH SCH (06:19)
[2020-07-22] MEDS: Ascorbic Acid 500 mg Chewable Tablet PO SCH (08:12)
[2020-07-22] MEDS: Multivit, Therapeutic 1 TAB PO SCH (08:12)
[2020-07-22] MEDS: Famotidine 20 MG TAB PO SCH (08:13)
[2020-07-22] MEDS: Polyethylene Glycol 3350 17 GM Packet PO SCH (08:13)
[2020-07-22] MEDS: Enoxaparin Sodium 40 MG/0.4 ML SYRINGE SC SCH (08:13)
[2020-07-22] MEDS: guaiFENesin ER 600 MG TAB PO SCH (08:13)
[2020-07-22] MEDS: Zinc Sulfate 220 MG CAP PO SCH (08:13)
[2020-07-22] MEDS: Calcium Carbonate 600 MG + Vit D TAB PO SCH (08:13)
[2020-07-22] MEDS: Cyanocobalamin (Vitamin B-12) 1,000 MCG TAB PO SCH (08:13)
[2020-07-22] MEDS: Folic Acid 1 MG TAB PO SCH (08:13)
[2020-07-22] MEDS: Amlodipine 5 MG TAB PO SCH (10:31)
[2020-07-22 14:22] VITALS: BP 129/79; TEMP 97.7
--- NOTE | 2020-07-22 15:58 | DIS ---
DATE OF ADMISSION: 07/18/2020 DATE OF DISCHARGE: 07/22/2020 DISCHARGE DISPOSITION: Home. FOLLOWUP: 1. Follow up with primary care physician, Dr. Sagastume later this week as scheduled. 2. Follow up with Infectious Disease in 2 weeks. 3. [facility] has been arranged. The patient was evaluated on the day of discharge. Denies any new complaints. Shortness of breath is improving. DISCHARGE MEDICATIONS: 1. Dexamethasone 6 mg daily for 1 week. 2. Eliquis 2.5 mg b.i.d. for 2 weeks. 3. Albuterol inhaler as needed. 4. All other home medications were left unchanged. SIGNIFICANT LABORATORY DATA: WBC 2.4 with lymphocytopenia. D-dimer 0.99 at discharge. Ferritin of 40.8. CRP of 1.9. LFTs in normal range. Creatinine 0.8. COVID-19 testing was positive on the 18 July. BRIEF HOSPITAL COURSE: The patient is a 55-year-old female with COPD/asthma, presented to the hospital with shortness of breath on the July,. The shortness of breath has been gradually worsening over the last 2 weeks along with cough and wheezing. She had known COVID contact approximately 2 weeks prior to admission. She also complained of some diarrhea along with persistent insomnia. She tried using inhalers without much relief. Please refer to the history and physical for further details. A chest x-ray in the emergency room showed bibasilar infiltrate consistent with COVID-19 pneumonia. She was placed on oxygen supplementation. Her COVID-19 testing came back positive. Her initial O2 saturation was 90% on room air. The patient was evaluated by Infectious Disease, Dr. Bro. The patient did not meet the criteria for remdesivir and would not benefit from convalescent plasma per Infectious Disease. She was placed on Decadron. Her inflammatory markers were monitored. She has been cleared by Infectious Disease for discharge. She is currently on 2 L nasal cannula. Her O2 saturation lowest was 86% on room air. She was advised to monitor pulse oximetry and seek medical attention if her symptoms worsen. FINAL DIAGNOSES: 1. Acute hypoxic respiratory failure secondary to COVID-19 pneumonia present on admission. 2. Hypomagnesemia, replaced. 3. Chronic obstructive pulmonary disease/asthma with suspected mild chronic obstructive pulmonary disease exacerbation present on admission, improved. 4. Former smoker. 5. Hypertension. 6. Obstructive sleep apnea, on CPAP. 7. Anxiety. 8. Depression without any suicidal ideation. 9. Leukopenia/lymphopenia secondary to COVID-19. 10. Mild hyponatremia. 11. Chronic kidney disease, stage 2. 12. Elevated inflammatory markers. The patient understands the above plan of care. Job ID: [id number]
== END 2020-07-22 15:22 | disposition home health service (06) | DRG 177 ==
LOC: ERS 23:11 → T4-A 07-18 03:40
PROVIDERS: ADMIT Internal Medicine; ATTEND Internal Medicine
PROC: 3E02340 Introduction of Influenza Vaccine into Muscle, Percutaneous Approach (ICD-10-PCS; principal; 2020-07-18)
PROC: 8E0ZXY6 Isolation (ICD-10-PCS; 2020-07-18)
DX: U07.1 COVID-19 (principal); J12.89 Other viral pneumonia; J96.01 Acute respiratory failure with hypoxia; J44.1 Chronic obstructive pulmonary disease with (acute) exacerbation; J44.0 Chronic obstructive pulmonary disease with (acute) lower respiratory infection; E87.1 Hypo-osmolality and hyponatremia; E83.42 Hypomagnesemia; Z87.891 Personal history of nicotine dependence; G47.33 Obstructive sleep apnea (adult) (pediatric); F41.9 Anxiety disorder, unspecified; F32.9 Major depressive disorder, single episode, unspecified; D72.819 Decreased white blood cell count, unspecified; D72.810 Lymphocytopenia; N18.2 Chronic kidney disease, stage 2 (mild); I12.9 Hypertensive chronic kidney disease with stage 1 through stage 4 chronic kidney disease, or unspecified chronic kidney disease; Z23 Encounter for immunization; Z99.89 Dependence on other enabling machines and devices; Z98.51 Tubal ligation status
CPT/HCPCS: 36415; 80053; 82728; 83615; 83735; 84484; 85025; 85379; 86140; 90471; 90732; 94664; 99285; G0009; J1100; J1650; J3475; J7050; U0002

== ENCOUNTER 2021-10-23 17:04 | Inpatient (IN) | payer MEDICARE, MEDICAID ==
[~2021-10-23 17:04] MED LIST: Iopamidol-370 76% 500 ML 1 ML ONE
[2021-10-23 17:48] LABS: #Lymphocytes 0.8 thou/uL (1.20-3.40); #Monocytes 0.2 thou/uL (0.11-0.59); #Neutrophils 7.3 thou/uL (1.40-6.50); %Basophils 0.3 % (0.0-1.0); %Eosinophils 0.3 % (0.0-10.0); %Lymphocytes 9.8 % (21.0-51.0); %Monocytes 1.8 % (0.0-10.0); %Neutrophils 87.8 % (42.0-75.0); Hemoglobin 15.4 g/dL (12.0-16.0); Mean Corpuscular HGB CONC 33.4 g/dL (32.0-36.0); Mean Corpuscular Hemoglobin 34.6 pg (27.0-31.0); Mean Platelet Volume 6.8 fL (7.4-10.4); Platelet Count 293 thou/uL (130-400); RBC Distribution Width 11.9 % (11.5-14.5); Red Blood Cell (RBC) Count 4.45 mill/uL (4.20-5.40); White Blood Cell (WBC) Count 8.3 thou/uL (4.8-10.8)
[2021-10-23 18:10] LABS: ALT (SGPT) 16 U/L (8-55); AST (SGOT) 32 U/L (5-34); Albumin 4.4 g/dL (3.5-5.0); Alkaline Phosphatase 72 U/L (40-110); Anion Gap 18 mmol/L (10-20); BUN (Urea Nitrogen) 20 mg/dL (9.8-20.1); Bilirubin, Total 0.7 mg/dL (0.2-1.2); Calc. Creatinine Clearance 0 mL/min (70-130); Calcium 9.9 mg/dL (7.8-10.44); Carbon Dioxide 24 mmol/L (22-29); Chloride 101 mmol/L (98-107); Globulin 3.4 g/dL (2.4-3.5); Glucose 98 mg/dL (70-105); Potassium 4.5 mmol/L (3.5-5.1); Protein, Total 7.8 g/dL (6.0-8.3); Sodium 138 mmol/L (136-145)
[2021-10-23] MEDS ORDERED: Dexamethasone 10 MG/ML VIAL ONE (18:16)
[2021-10-23] MEDS ORDERED: hydrALAZINE 20 MG/ML VIAL ONE ×2 (18:16→21:03)
[2021-10-23] MEDS ORDERED: Magnesium 2 GM/50 ML BAG (IN WATER) ONE (18:34)
[2021-10-23 18:38] LABS: CK (CPK) 59 U/L (29-168); Lipase 48 U/L (8-78)
[2021-10-23] MEDS ORDERED: hydrALAZINE 20 MG/ML VIAL SLOW IVP PRN (19:22)
[2021-10-23] MEDS ORDERED: Ondansetron ODT 4 MG TAB SL PRN (19:30)
[2021-10-23] MEDS ORDERED: Sodium Chloride 0.9% 1,000 ML IV SCH (19:30)
[2021-10-23] MEDS ORDERED: Ondansetron PF 4 MG/2 ML Vial IVP PRN (19:30)
[2021-10-23 20:54] LABS: SARS-CoV-2 NAA Rapid Test DETECTED (NotDetected)
[2021-10-23] MEDS ORDERED: Lorazepam 2 MG/ML VIAL ONE (21:27)
[2021-10-23] MEDS ORDERED: Diltiazem 125 MG/25 ML ONE (21:28)
[2021-10-24 02:48] VITALS: BMI 25.0
[2021-10-24] MEDS ORDERED: Ondansetron PF 4 MG/2 ML Vial IVP PRN (03:43)
[2021-10-24] MEDS ORDERED: hydrALAZINE 20 MG/ML VIAL SLOW IVP PRN (03:44)
[2021-10-24] MEDS ORDERED: guaiFENesin ER 600 MG TAB PO PRN (03:45)
[2021-10-24] MEDS ORDERED: Albuterol 200 PUFF (6.7GM INHALER) INH PRN (03:58)
[2021-10-24] MEDS: Albuterol 200 PUFF (6.7GM INHALER) INH SCH ×5 (05:42→20:07)
[2021-10-24] MEDS: Mometasone 200 MCG/Formoterol 5 MCG 120 PUFF INHALER INH SCH ×2 (05:46→18:32)
[2021-10-24] MEDS ORDERED: Albuterol 200 PUFF (6.7GM INHALER) INH SCH (06:00)
[2021-10-24] MEDS ORDERED: methylPREDNISolone Sod Succ/PF 125 MG/2 ML VIAL IVP SCH (06:00)
[2021-10-24 06:17] LABS: Hemoglobin 14.9 g/dL (12.0-16.0); Mean Corpuscular HGB CONC 33.3 g/dL (32.0-36.0); Mean Corpuscular Hemoglobin 34.6 pg (27.0-31.0); Platelet Count 264 thou/uL (130-400); RBC Distribution Width 12.1 % (11.5-14.5); Red Blood Cell (RBC) Count 4.32 mill/uL (4.20-5.40); White Blood Cell (WBC) Count 2.6 thou/uL (4.8-10.8)
[2021-10-24 06:31] LABS: Band 5 % (5-11); Lymphocytes 13 % (21-51); MDiff Complete? YES; Neutrophil 81 % (42-75); Reactive Lymphocytes 1 % (0-10)
[2021-10-24 06:52] LABS: BUN (Urea Nitrogen) 23 mg/dL (9.8-20.1); Calc. Creatinine Clearance 74 mL/min (70-130); Calcium 9.2 mg/dL (7.8-10.44); Carbon Dioxide 20 mmol/L (22-29); Chloride 101 mmol/L (98-107); Glucose 252 mg/dL (70-105); Magnesium 1.6 mg/dL (1.6-2.6); Sodium 136 mmol/L (136-145)
[2021-10-24 08:22] LABS: Anion Gap 19 mmol/L (10-20)
[2021-10-24] MEDS ORDERED: Famotidine 20 MG TAB PO SCH (09:00)
[2021-10-24] MEDS ORDERED: Non-Formulary Item 1 EACH (Tiotropium Bromide [Spiriva] 18 MCG Cap.W.Dev) IH SCH (09:00)
[2021-10-24] MEDS: Ascorbic Acid 500 mg Chewable Tablet PO SCH (10:21)
[2021-10-24] MEDS: Enoxaparin Sodium 40 MG/0.4 ML SYRINGE SC SCH (10:21)
[2021-10-24] MEDS: Amlodipine 10 MG TAB PO SCH (10:22)
[2021-10-24] MEDS: Folic Acid 1 MG TAB PO SCH (10:22)
[2021-10-24] MEDS: Lisinopril/Hydrochlorothiazide 20 mg/12.5 mg Tablet PO SCH (10:22)
[2021-10-24] MEDS: Thiamine 100 MG TAB PO SCH (10:22)
[2021-10-24] MEDS: Zinc Sulfate 220 MG CAP PO SCH (10:22)
[2021-10-24] MEDS: methylPREDNISolone Sod Succ 40 MG VIAL IVP SCH ×3 (14:39→20:00)
[2021-10-24] MEDS: Acetaminophen 325 MG TAB PO PRN (16:30)
[2021-10-24] MEDS: Polyethylene Glycol 3350 17 GM Packet PO PRN (16:31)
[2021-10-24] MEDS ORDERED: clonazePAM 0.5 MG TAB PO SCH (22:30)
[2021-10-25] MEDS: methylPREDNISolone Sod Succ 40 MG VIAL IVP SCH ×4 (01:21→20:17)
[2021-10-25] MEDS: Albuterol 200 PUFF (6.7GM INHALER) INH SCH ×6 (01:21→20:18)
[2021-10-25] MEDS: Mometasone 200 MCG/Formoterol 5 MCG 120 PUFF INHALER INH SCH ×2 (05:30→17:41)
[2021-10-25 07:17] LABS: Anion Gap 18 mmol/L (10-20); BUN (Urea Nitrogen) 25 mg/dL (9.8-20.1); Calc. Creatinine Clearance 86 mL/min (70-130); Calcium 9.7 mg/dL (7.8-10.44); Carbon Dioxide 22 mmol/L (22-29); Chloride 101 mmol/L (98-107); Glucose 160 mg/dL (70-105); Magnesium 1.8 mg/dL (1.6-2.6); Potassium 3.9 mmol/L (3.5-5.1); Sodium 137 mmol/L (136-145)
[2021-10-25] MEDS: Enoxaparin Sodium 40 MG/0.4 ML SYRINGE SC SCH (08:04)
[2021-10-25] MEDS: Ascorbic Acid 500 mg Chewable Tablet PO SCH (08:05)
[2021-10-25] MEDS: Amlodipine 10 MG TAB PO SCH (08:05)
[2021-10-25] MEDS: Zinc Sulfate 220 MG CAP PO SCH (08:05)
[2021-10-25] MEDS: Thiamine 100 MG TAB PO SCH (08:05)
[2021-10-25] MEDS: Lisinopril/Hydrochlorothiazide 20 mg/12.5 mg Tablet PO SCH (08:06)
[2021-10-25] MEDS: Folic Acid 1 MG TAB PO SCH (08:06)
[2021-10-25] MEDS: Acetaminophen 325 MG TAB PO PRN (08:15)
[2021-10-25 08:17] LABS: Band 11 % (5-11); Hemoglobin 15.2 g/dL (12.0-16.0); Lymphocytes 2 % (21-51); MDiff Complete? YES; Macrocytosis SLIGHT = 6-15 cells (100X) (0-5/hpf); Mean Corpuscular HGB CONC 32.2 g/dL (32.0-36.0); Mean Corpuscular Hemoglobin 34.3 pg (27.0-31.0); Mean Platelet Volume 7.1 fL (7.4-10.4); Monocytes 2 % (0-10); Neutrophil 83 % (42-75); Platelet Count 245 thou/uL (130-400); Platelet Morphology Comment Appears Adequate; Polychromasia SLIGHT = 2-3 cells (100X) (0-2/hpf); RBC Distribution Width 12.3 % (11.5-14.5); Reactive Lymphocytes 2 % (0-10); Red Blood Cell (RBC) Count 4.42 mill/uL (4.20-5.40); White Blood Cell (WBC) Count 7.1 thou/uL (4.8-10.8)
[2021-10-25] MEDS: Polyethylene Glycol 3350 17 GM Packet PO PRN (14:02)
[2021-10-25] MEDS ORDERED: clonazePAM 0.5 MG TAB PO PRN (21:00)
[2021-10-26] MEDS: Albuterol 200 PUFF (6.7GM INHALER) INH SCH ×4 (03:03→13:44)
[2021-10-26] MEDS: methylPREDNISolone Sod Succ 40 MG VIAL IVP SCH ×2 (03:06→09:08)
[2021-10-26] MEDS: Mometasone 200 MCG/Formoterol 5 MCG 120 PUFF INHALER INH SCH (05:27)
[2021-10-26 06:07] LABS: Hemoglobin 15.3 g/dL (12.0-16.0); Lymphocytes 7 % (21-51); MDiff Complete? YES; Mean Corpuscular HGB CONC 33.1 g/dL (32.0-36.0); Mean Corpuscular Hemoglobin 34.7 pg (27.0-31.0); Mean Platelet Volume 7.1 fL (7.4-10.4); Monocytes 4 % (0-10); Neutrophil 89 % (42-75); Platelet Count 237 thou/uL (130-400); Platelet Morphology Comment Appears Adequate; RBC Distribution Width 12.1 % (11.5-14.5); RBC Morphology Normal; Red Blood Cell (RBC) Count 4.42 mill/uL (4.20-5.40)
[2021-10-26 06:33] LABS: Anion Gap 15 mmol/L (10-20); BUN (Urea Nitrogen) 29 mg/dL (9.8-20.1); Calc. Creatinine Clearance 89 mL/min (70-130); Calcium 9.5 mg/dL (7.8-10.44); Carbon Dioxide 24 mmol/L (22-29); Chloride 101 mmol/L (98-107); Glucose 151 mg/dL (70-105); Magnesium 1.8 mg/dL (1.6-2.6); Potassium 3.7 mmol/L (3.5-5.1); Sodium 136 mmol/L (136-145)
[2021-10-26] MEDS: Enoxaparin Sodium 40 MG/0.4 ML SYRINGE SC SCH (09:08)
[2021-10-26] MEDS: Ascorbic Acid 500 mg Chewable Tablet PO SCH (09:09)
[2021-10-26] MEDS: Zinc Sulfate 220 MG CAP PO SCH (09:09)
[2021-10-26] MEDS: Lisinopril/Hydrochlorothiazide 20 mg/12.5 mg Tablet PO SCH (09:09)
[2021-10-26] MEDS: Thiamine 100 MG TAB PO SCH (09:10)
[2021-10-26] MEDS: Amlodipine 10 MG TAB PO SCH (09:10)
[2021-10-26] MEDS: Folic Acid 1 MG TAB PO SCH (09:10)
[2021-10-26 12:48] VITALS: BP 121/59; TEMP 97.4
== END 2021-10-26 14:17 | disposition home or self-care (01) | DRG 177 ==
LOC: ERS 17:04 → ERHOLD 19:16 → 2SW 10-24 02:36
PROVIDERS: ADMIT Family Medicine; ATTEND Internal Medicine
PROC: 8E0ZXY6 Isolation (ICD-10-PCS; principal; 2021-10-23)
DX: U07.1 COVID-19 (principal); J12.82 Pneumonia due to coronavirus disease 2019; J96.21 Acute and chronic respiratory failure with hypoxia; J44.1 Chronic obstructive pulmonary disease with (acute) exacerbation; J44.0 Chronic obstructive pulmonary disease with (acute) lower respiratory infection; I10 Essential (primary) hypertension; G47.33 Obstructive sleep apnea (adult) (pediatric); I16.0 Hypertensive urgency; F41.9 Anxiety disorder, unspecified; F32.A Depression, unspecified; E89.0 Postprocedural hypothyroidism; Z79.899 Other long term (current) drug therapy; Z79.52 Long term (current) use of systemic steroids; Z88.8 Allergy status to other drugs, medicaments and biological substances; Z99.81 Dependence on supplemental oxygen; Z98.51 Tubal ligation status; Z87.891 Personal history of nicotine dependence
CPT/HCPCS: 36415; 71045; 71275; 80048; 80053; 82550; 83690; 83735; 83880; 84484; 85007; 85025; 85027; 85379; 86140; 93005; 94760; J0360; J1100; J1650; J1956; J2060; J2920; J2930; J3475; Q9967; U0002

== ENCOUNTER 2022-08-26 14:25 | Inpatient (IN) | payer OTHER, MEDICAID ==
[2022-08-26 15:02] LABS: #Basophils 0.1 thou/uL (0.0-0.2); #Lymphocytes 1.1 thou/uL (1.20-3.40); #Monocytes 0.6 thou/uL (0.11-0.59); #Neutrophils 8.3 thou/uL (1.40-6.50); %Basophils 0.6 % (0.0-1.0); %Eosinophils 0.4 % (0.0-10.0); %Lymphocytes 10.9 % (21.0-51.0); %Monocytes 6.3 % (0.0-10.0); %Neutrophils 81.9 % (42.0-75.0); Hemoglobin 14.8 g/dL (12.0-16.0); Mean Corpuscular HGB CONC 33.5 g/dL (32.0-36.0); Mean Corpuscular Hemoglobin 35.3 pg (27.0-31.0); Mean Platelet Volume 7.6 fL (7.4-10.4); Platelet Count 333 10x3/uL (130-400); RBC Distribution Width 11.7 % (11.5-14.5); Red Blood Cell (RBC) Count 4.21 mill/uL (4.20-5.40); White Blood Cell (WBC) Count 10.1 10x3/uL (4.8-10.8)
[2022-08-26 15:13] LABS: INR-International Normal Ratio 0.9; PTT 28.6 sec (22.9-36.1); Prothrombin Time 12.9 sec (12.0-14.7)
[2022-08-26 15:15] LABS: Albumin 4.6 g/dL (3.5-5.0); Anion Gap 22 mmol/L (10-20); BUN (Urea Nitrogen) 75 mg/dL (9.8-20.1); Bilirubin, Total 0.7 mg/dL (0.2-1.2); Calc. Creatinine Clearance 0 mL/min (70-130); Calcium 10.4 mg/dL (7.8-10.44); Carbon Dioxide 14 mmol/L (22-29); Chloride 92 mmol/L (98-107); Estimated GFR 30; Glucose 84 mg/dL (70-105); Protein, Total 8.4 g/dL (6.0-8.3); Sodium 122 mmol/L (136-145)
[2022-08-26 15:16] LABS: ALT (SGPT) 16 U/L (8-55); AST (SGOT) 22 U/L (5-34); Alkaline Phosphatase 61 U/L (40-110); Globulin 3.8 g/dL (2.4-3.5)
[2022-08-26 15:20] LABS: Potassium 6.4 mmol/L (3.5-5.1)
[2022-08-26] MEDS ORDERED: Calcium Chloride 1 GM/10 ML Abboject SYRINGE ONE (16:17)
[2022-08-26] MEDS ORDERED: Sodium Bicarb 50 MEQ/50 ML VIAL ONE (16:17)
[2022-08-26] MEDS ORDERED: cefTRIAXone\\ROCEPHIN 1 GM VIAL ONE (16:17)
[2022-08-26] MEDS ORDERED: Insulin Regular 300 UNITS/3 ML VIAL ONE (16:17)
[2022-08-26] MEDS ORDERED: Albuterol Sulfate 2.5 mg/0.5 ml Neb ONE (16:17)
[2022-08-26] MEDS ORDERED: Dextrose 50% Abboject 50 ML SYRINGE ONE (16:19)
[2022-08-26] MEDS ORDERED: LOKELMA 10 GM PACKET PO SCH (16:55)
[2022-08-26] MEDS ORDERED: Bisacodyl 5 MG TAB PO PRN (17:23)
[2022-08-26] MEDS ORDERED: Senokot S 8.6-50 MG TAB PO PRN (17:23)
[2022-08-26 18:08] LABS: Bilirubin Negative (Negative); Blood, Urine Negative (Negative); Glucose, Urine (Dipstick) Normal (Negative); Ketone, Urine Negative (Negative); Leukocyte 500 Leu/uL (Negative); Nitrite Negative (Negative); Protein, Urine (Dipstick) Negative (Neg-Trace); RBC/HPF 0-3 HPF (0-3); Specific Gravity, Urine 1.007 (1.002-1.036); Squamous Epithelial 0-3 HPF (0-3); Urobilinogen Normal mg/dL (Less than 2); WBC/HPF Greater than 50 HPF (0-3)
[2022-08-26 18:09] LABS: Bacteria/HPF 1+ HPF (None Seen); Clarity Cloudy (Clear)
[2022-08-26] MEDS: Sodium Bicarbonate 75 MEQ in Sodium Chloride 0.45% 1,000 ML IV SCH (18:32)
[2022-08-26 19:40] LABS: Troponin I Less than 0.010 ng/mL (< 0.028)
[2022-08-26 19:46] LABS: Potassium 5.4 mmol/L (3.5-5.1); Sodium 128 mmol/L (136-145)
[2022-08-26] MEDS ORDERED: Famotidine 20 MG TAB PO SCH (21:00)
[2022-08-26 21:16] LABS: Protein, Urine Random Quant Less than 10 mg/dL (1-14); Sodium, Urine 48 mmol/L (Not Available); Urea Nitrogen, Random Urine 227 mg/dl
[2022-08-26] MEDS: Heparin 5,000 UNITS/ML VIAL SC SCH (21:51)
[2022-08-26] MEDS ORDERED: clonazePAM 0.5 MG TAB PO SCH (22:00)
[2022-08-26 23:09] LABS: Anion Gap 14 mmol/L (10-20); BUN (Urea Nitrogen) 67 mg/dL (9.8-20.1); Carbon Dioxide 20 mmol/L (22-29); Chloride 102 mmol/L (98-107); Potassium 5.1 mmol/L (3.5-5.1); Sodium 131 mmol/L (136-145)
[2022-08-26 23:10] VITALS: BMI 23.8
[2022-08-26 23:10] LABS: Albumin 3.3 g/dL (3.5-5.0); BUN/Creatinine Ratio 43.23; Calc. Creatinine Clearance 0 mL/min (70-130); Calcium 9.4 mg/dL (7.8-10.44); Estimated GFR 38; Glucose 151 mg/dL (70-105); Phosphorus 3.5 mg/dL (2.3-4.7)
[2022-08-26 23:13] LABS: Troponin I Less than 0.010 ng/mL (< 0.028)
[2022-08-27 01:22] LABS: Sodium 129 mmol/L (136-145)
[2022-08-27 05:18] LABS: Anion Gap 14 mmol/L (10-20); BUN (Urea Nitrogen) 60 mg/dL (9.8-20.1); Calc. Creatinine Clearance 49 mL/min (70-130); Calcium 9.3 mg/dL (7.8-10.44); Carbon Dioxide 20 mmol/L (22-29); Chloride 103 mmol/L (98-107); Estimated GFR 51; Glucose 85 mg/dL (70-105); Potassium 5.3 mmol/L (3.5-5.1); Sodium 132 mmol/L (136-145)
[2022-08-27 05:25] LABS: #Eosinphils 0.1 thou/uL (0.0-0.7); #Lymphocytes 0.9 thou/uL (1.20-3.40); #Monocytes 0.5 thou/uL (0.11-0.59); #Neutrophils 3.4 thou/uL (1.40-6.50); %Basophils 0.3 % (0.0-1.0); %Eosinophils 1.2 % (0.0-10.0); %Lymphocytes 17.7 % (21.0-51.0); %Monocytes 9.5 % (0.0-10.0); %Neutrophils 71.2 % (42.0-75.0); Hemoglobin 12.1 g/dL (12.0-16.0); Mean Corpuscular HGB CONC 33.6 g/dL (32.0-36.0); Mean Corpuscular Hemoglobin 36.2 pg (27.0-31.0); Mean Platelet Volume 7.6 fL (7.4-10.4); Platelet Count 213 10x3/uL (130-400); RBC Distribution Width 11.6 % (11.5-14.5); Red Blood Cell (RBC) Count 3.35 mill/uL (4.20-5.40); White Blood Cell (WBC) Count 4.8 10x3/uL (4.8-10.8)
[2022-08-27] MEDS: Sodium Bicarbonate 75 MEQ in Sodium Chloride 0.45% 1,000 ML IV SCH (06:16)
[2022-08-27 06:43] LABS: Sodium 132 mmol/L (136-145)
[2022-08-27] MEDS ORDERED: LOKELMA 10 GM PACKET PO SCH (08:00)
[2022-08-27] MEDS: Sodium Bicarbonate Tab 325 MG TAB PO SCH ×3 (09:13→20:41)
[2022-08-27] MEDS: Heparin 5,000 UNITS/ML VIAL SC SCH ×3 (09:14→20:41)
[2022-08-27] MEDS: Folic Acid 1 MG TAB PO SCH (09:18)
[2022-08-27] MEDS: Aspirin Chewable 81 MG TAB PO SCH (09:18)
[2022-08-27] MEDS: Famotidine 20 MG TAB PO SCH (09:18)
[2022-08-27] MEDS: Acetaminophen 325 MG TAB PO PRN (09:55)
[2022-08-27] MEDS ORDERED: Sodium Bicarbonate 75 MEQ in Sodium Chloride 0.45% 1,000 ML IV SCH (10:00)
[2022-08-27] MEDS: cefTRIAXone\\ROCEPHIN 1 GM in Sodium Chloride 0.9% 100 ML IVPB SCH (16:22)
[2022-08-27 18:59] LABS: Anion Gap 16 mmol/L (10-20); BUN (Urea Nitrogen) 46 mg/dL (9.8-20.1); Calc. Creatinine Clearance 59 mL/min (70-130); Carbon Dioxide 24 mmol/L (22-29); Chloride 98 mmol/L (98-107); Estimated GFR 63; Glucose 128 mg/dL (70-105); Potassium 4.5 mmol/L (3.5-5.1); Sodium 133 mmol/L (136-145)
[2022-08-27] MEDS: Mometasone 200 MCG/Formoterol 5 MCG 120 PUFF INHALER INH SCH (19:52)
[2022-08-27] MEDS: clonazePAM 0.5 MG TAB PO SCH (20:41)
[2022-08-27] MEDS ORDERED: clonazePAM 0.5 MG TAB PO SCH (21:00)
[2022-08-27] MEDS ORDERED: HYDROcodone/Acetaminophen 5/325 mg Tablet PO PRN (21:46)
[2022-08-28 05:55] LABS: Albumin 3.1 g/dL (3.5-5.0); Anion Gap 12 mmol/L (10-20); BUN (Urea Nitrogen) 34 mg/dL (9.8-20.1); BUN/Creatinine Ratio 41.46; Calc. Creatinine Clearance 73 mL/min (70-130); Calcium 8.9 mg/dL (7.8-10.44); Carbon Dioxide 26 mmol/L (22-29); Chloride 100 mmol/L (98-107); Estimated GFR 82; Glucose 92 mg/dL (70-105); Phosphorus 3.1 mg/dL (2.3-4.7); Potassium 4.1 mmol/L (3.5-5.1); Sodium 134 mmol/L (136-145)
[2022-08-28] MEDS: Mometasone 200 MCG/Formoterol 5 MCG 120 PUFF INHALER INH SCH ×2 (07:23→19:34)
[2022-08-28] MEDS: Heparin 5,000 UNITS/ML VIAL SC SCH ×3 (08:37→21:01)
[2022-08-28] MEDS: Folic Acid 1 MG TAB PO SCH (08:38)
[2022-08-28] MEDS: Sodium Bicarbonate Tab 325 MG TAB PO SCH (08:38)
[2022-08-28] MEDS: Famotidine 20 MG TAB PO SCH ×2 (08:38→21:01)
[2022-08-28] MEDS: Aspirin Chewable 81 MG TAB PO SCH (08:38)
[2022-08-28] MEDS: cefTRIAXone\\ROCEPHIN 1 GM in Sodium Chloride 0.9% 100 ML IVPB SCH (14:35)
[2022-08-28] MEDS: clonazePAM 0.5 MG TAB PO SCH (21:01)
[2022-08-29] MEDS: Mometasone 200 MCG/Formoterol 5 MCG 120 PUFF INHALER INH SCH ×2 (07:44→18:33)
[2022-08-29] MEDS: Heparin 5,000 UNITS/ML VIAL SC SCH ×3 (08:27→20:41)
[2022-08-29] MEDS: Famotidine 20 MG TAB PO SCH ×2 (08:27→20:41)
[2022-08-29] MEDS: Folic Acid 1 MG TAB PO SCH (08:27)
[2022-08-29] MEDS: Aspirin Chewable 81 MG TAB PO SCH (08:27)
[2022-08-29] MEDS ORDERED: Iopamidol-370 76% 500 ML 1 ML ONE (08:58)
[2022-08-29] MEDS: cefTRIAXone\\ROCEPHIN 1 GM in Sodium Chloride 0.9% 100 ML IVPB SCH (15:40)
[2022-08-29] MEDS ORDERED: Lactated Ringer's 1,000 ML IV SCH (16:30)
[2022-08-29] MEDS: clonazePAM 0.5 MG TAB PO SCH (20:41)
[2022-08-30] MEDS: Acetaminophen 325 MG TAB PO PRN (02:37)
[2022-08-30 05:40] LABS: Albumin 3.3 g/dL (3.5-5.0); Anion Gap 12 mmol/L (10-20); BUN (Urea Nitrogen) 18 mg/dL (9.8-20.1); BUN/Creatinine Ratio 22.22; Calc. Creatinine Clearance 72 mL/min (70-130); Calcium 9.2 mg/dL (7.8-10.44); Carbon Dioxide 25 mmol/L (22-29); Chloride 103 mmol/L (98-107); Estimated GFR 84; Glucose 95 mg/dL (70-105); Phosphorus 3.2 mg/dL (2.3-4.7); Potassium 4.1 mmol/L (3.5-5.1); Sodium 136 mmol/L (136-145)
[2022-08-30] MEDS: Mometasone 200 MCG/Formoterol 5 MCG 120 PUFF INHALER INH SCH (06:59)
[2022-08-30 08:27] VITALS: BP 163/82; TEMP 97.5
[2022-08-30] MEDS: Famotidine 20 MG TAB PO SCH (08:44)
[2022-08-30] MEDS: Aspirin Chewable 81 MG TAB PO SCH (08:44)
[2022-08-30] MEDS: Folic Acid 1 MG TAB PO SCH (08:44)
[2022-08-30] MEDS: Heparin 5,000 UNITS/ML VIAL SC SCH (08:46)
[2022-08-30] MEDS ORDERED: Amlodipine 10 MG TAB PO SCH (09:00)
[2022-08-30] MEDS ORDERED: Carvedilol 3.125 MG TAB PO SCH ×2 (09:15→17:00)
== END 2022-08-30 11:18 | disposition home or self-care (01) | DRG 683 ==
LOC: ERS 14:25 → ERHOLD 16:27 → 2SW 20:05
PROVIDERS: ADMIT Internal Medicine; ATTEND Internal Medicine
DX: N17.9 Acute kidney failure, unspecified (principal); E87.1 Hypo-osmolality and hyponatremia; N39.0 Urinary tract infection, site not specified; E87.20 Acidosis, unspecified; Z20.822 Contact with and (suspected) exposure to COVID-19; E86.1 Hypovolemia; T50.1X5A Adverse effect of loop [high-ceiling] diuretics, initial encounter; T50.0X5A Adverse effect of mineralocorticoids and their antagonists, initial encounter; T46.4X5A Adverse effect of angiotensin-converting-enzyme inhibitors, initial encounter; I10 Essential (primary) hypertension; R60.0 Localized edema; B96.89 Other specified bacterial agents as the cause of diseases classified elsewhere; J44.9 Chronic obstructive pulmonary disease, unspecified; K21.9 Gastro-esophageal reflux disease without esophagitis; E87.5 Hyperkalemia; E86.0 Dehydration; K74.60 Unspecified cirrhosis of liver; R00.0 Tachycardia, unspecified; Z87.01 Personal history of pneumonia (recurrent); Z87.898 Personal history of other specified conditions; Z88.8 Allergy status to other drugs, medicaments and biological substances; Z98.51 Tubal ligation status; Z90.710 Acquired absence of both cervix and uterus; Z79.899 Other long term (current) drug therapy; Z82.3 Family history of stroke; Z82.49 Family history of ischemic heart disease and other diseases of the circulatory system; Z87.891 Personal history of nicotine dependence
CPT/HCPCS: 36415; 36416; 71045; 71275; 76705; 80048; 80053; 80069; 81003; 81015; 82550; 82570; 83605; 83880; 83930; 84156; 84300; 84484; 84540; 85025; 85610; 85730; 87040; 87077; 87086; 87186; 93005; 94640; 94664; 94760; 96365; 96375; J0696; J1644; J1815; J3490; J7120; J7611; J7620; J7999; U0003; U0005